=== PATIENT | female | born 1945 | race Caucasian/White ===

== ENCOUNTER 2021-11-28 15:05 | Outpatient (REF) | payer MEDICARE, SELFPAY ==
--- NOTE | ~2021-11-28 | MM_ITS ---
EXAMINATION: MM SCREENING DIGITAL BREAST TOMOSYNTHESIS, BILATERAL CLINICAL INFORMATION: Screening. Asymptomatic. The lifetime risk of breast cancer based on the Tyrer-Cuzick Model is 2%. COMPARISON: Mammography: 11/20/2018, 07/27/2014 TECHNIQUE: Digital breast tomosynthesis is performed in both the craniocaudal and mediolateral oblique views along with computer-aided detection (CAD). Synthesized 2D images are generated from the tomosynthesis. FINDINGS: The breasts are almost entirely fatty (ACR BI-RADS breast composition Category a). Background stromal and fibroglandular densities are stable. There are no significant masses, abnormal calcifications, or other abnormalities. The axilla and skin contours are unremarkable. MM/MM tomosynthesis screening BI IMPRESSION: No mammographic evidence of malignancy. ASSESSMENT: BI-RADS 1: Negative RECOMMENDATION: Routine annual mammography screening. This patient's information was entered into a reminder system with a target due date for their next mammogram.
== END 2021-11-28 15:06 | disposition home or self-care (01) ==
LOC: HO.MAMMO 15:05
PROVIDERS: Visit Provider Internal Medicine
DX: Z12.31 Encounter for screening mammogram for malignant neoplasm of breast (principal)
CPT/HCPCS: 77063; 77067

== ENCOUNTER 2022-01-08 18:00 | Inpatient (IN) | payer MEDICARE, SELFPAY ==
--- NOTE | ~2022-01-08 | CT_ITS ---
EXAMINATION: CT ABDOMEN AND PELVIS WITHOUT CONTRAST CLINICAL INFORMATION: Left lower quadrant pain COMPARISON: 05/07/2016 CT abdomen and pelvis TECHNIQUE: Multidetector volumetric imaging was performed from the superior aspect of the liver through the pubic symphysis. Sagittal and coronal reformatted images were obtained on the technologist's workstation. This CT examination was performed using dose optimization techniques as appropriate, variously including the following: *Automated exposure control *Adjustment of mA and/or kV according to patient size (this includes techniques or standardized protocols for targeted exams where dose is matched to indication/reason for exam; i.e. extremities or head) *Use of iterative reconstruction technique DLP: 592 mGy-cm FINDINGS: LUNG BASES: The visualized lung bases are unremarkable. Densely calcified granuloma noted at the left lung base. LIVER, GALLBLADDER, AND BILIARY TREE: The liver is mildly enlarged but decrease in size when compared to the prior study going from 19 to 17 cm. Attenuation is still remains markedly decreased consistent with hepatic steatosis. No focal hepatic lesion or biliary ductal dilatation is present. The gallbladder is unremarkable with no evidence of radiopaque gallstones, gallbladder wall thickening, or obvious pericholecystic inflammatory changes. PANCREAS: Unremarkable. SPLEEN: Unremarkable. ADRENAL GLANDS: There is a water density 1.5 cm mass involving the medial limb of the left adrenal consistent with a benign adenoma. The right adrenal gland appears normal. KIDNEYS AND URETERS: The kidneys are normal in size, shape, and attenuation. No hydronephrosis, hydroureter, or calculi seen. No perinephric stranding. BLADDER: Unremarkable. GASTROINTESTINAL TRACT: Diverticular changes are present in the colon. In the rectosigmoid, there is one large diverticulum present with inflammatory changes around it in an area of thickened sigmoid with findings suggestive of acute uncomplicated diverticulitis. No extraluminal air or drainable abscess is seen. The small and large bowel are otherwise unremarkable. The appendix is is not seen with certainty but there is no evidence of appendicitis.. ABDOMINAL WALL: No significant hernia is appreciated. LYMPH NODES: Normal. VASCULAR: Calcific plaque is present without aneurysm. PELVIC VISCERA: Retroverted uterus is present. An abnormal adnexal mass or free intraperitoneal fluid is not seen. OSSEOUS STRUCTURES: Unremarkable. CT/CT abdomen pelvis wo con IMPRESSION: 1. Acute uncomplicated sigmoid diverticulitis 2. Incidentally noted enlarged fatty liver, benign adenoma left adrenal gland and other findings described above. Fleischner guidelines were followed.
[2022-01-08 18:13] VITALS: BP 168/75; PULSE 98; RESP 18; TEMP 37; O2SAT 98; BMI 31.1
[2022-01-08 18:27] LABS: Basophils Percent Auto 0.1 % (0-2); Eosinophils Percent Auto 0.1 % (0-4); Hematocrit 40.8 % (37.0-47.0); Hemoglobin 13.5 g/dl (12.0-16.0); Imm Gran Abs Auto 0.09 X10*3/uL (0.00-0.03); Imm Gran Pct Auto 0.4 % (0.0-0.4); Lymphocytes Absolute Auto 1.8 X10*3/uL (1.2-4.9); Lymphocytes Percent Auto 8.9 % (20-40); MANUAL DIFF FLAG NO; Mean Corpuscular HGB Conc 33.1 g/dl (31.0-35.0); Mean Corpuscular Volume 87.6 fL (80.0-98.0); Mean Platelet Volume 9.2 fL (9.4-12.3); Monocytes Absolute Auto 1.2 X10*3/uL (0.1-1.2); Monocytes Percent Auto 6.1 % (2-11); Neutrophils Absolute Auto 17.2 x10*3/uL (2.0-8.3); Neutrophils Percent Auto 84.4 % (45-73); Platelet Count 305 X10*3/uL (160-400); Red Blood Count 4.66 X10*6/uL (4.20-5.50); Red Cell Distribution Width 11.9 % (11.0-16.0); White Blood Count 20.3 X10*3/uL (4.8-10.8)
[2022-01-08 18:46] LABS: Anion Gap 16 (12-20); Blood Urea Nitrogen 12 mg/dL (9-16); Calcium 9.5 mg/dL (8.4-10.2); Carbon Dioxide 23 mmol/L (22-29); Chloride 103 mmol/L (96-108); Creatinine Clr Calc Pharmacy 52.7; Estimated Glomerular Filt Rate > 60; Glucose Random 123 mg/dL (60-115); Potassium 4.5 mmol/L (3.3-5.1); Sodium 137 mmol/L (135-145)
--- NOTE | 2022-01-08 23:29 | ED.ABDPAIN ---
HPI - Abdominal Pain General Chief Complaint: Abdominal Pain Stated Complaint: Low Abdominal Pain Time Seen by Provider: 01/08/22 23:26 Source: patient Mode of arrival: ambulatory Limitations: no limitations History of Present Illness MD elicited complaint: abdominal pain Pertinent past history: none Onset (ago): day(s) (3) Pain Consistency: constant Location: LLQ and suprapubic Severity: severe Quality: aching Radiation: none Exacerbating factors: movement Relieving factors: nothing Associated symptoms: nausea, diarrhea, fever, chills and hematochezia (very mild mucousy bloody stools at times - a couple of times) Related Data Allergies Allergy/AdvReac Type Severity Reaction Status Date / Time Penicillins [PENICILLINS] Allergy Unknown ITCHING Unverified 05/05/20 15:50 Review of Systems Review of Systems Constitutional : No Weight loss, pos Fever, pos Chills ENT/Mouth : No sore throat, No Rhinorrhea Eyes: No Swelling, No Redness Cardiovascular : No Chest Pain, No SOB, NoEdema Respiratory : No Cough, No Sputum, No Wheezing Gastrointestinal : Positive Nausea, no Vomiting, positive Diarrhea, positive abdominal Pain, No Hematochezia, No Melena, pos mucousy stools with slight bloody tinge Genitourinary : No Dysuria, No Urinary Frequency, No Hematuria, No Urgency Musculoskeletal : No joint pain, No Myalgias, No Joint Swelling Skin : No Skin Lesions, No rash Neuro : No Weakness, No Numbness, No Dizziness, No Headache Psych : No Anxiety/Panic, No Depression Heme/Lymph: No Bruising, No Lymphadenopathy Endocrine : No Polyuria, No Polydipsia All other systems reviewed and are negative. [facility] Past Medical History Attestation statement: The following information was validated with the patient. Medical History No pertinent past medical history Social History Social History (Updated 01/08/22 @ 23:41 by Rosa Isela Wylie DO) Patient Tobacco Use Status: Never used Tobacco Advance Directives: No Physical Exam ED Vital Signs: Vital Signs - 24 hr 01/08/22 18:13 Temperature 98.6 F Pulse Rate 98 Respiratory Rate 18 Blood Pressure 168/75 H Pulse Oximetry 98 BMI result Body Mass Index 31.1 Appearance: Alert. Oriented X3. Anxious in pain mild acute distress. Eyes: Pupils equal, round and reactive to light. ENT: Pharynx normal. Neck: Normal inspection. Neck supple. CVS: Normal heart rate and rhythm. Pulses normal. Respiratory: No respiratory distress. Breath sounds normal. Abdomen: Soft and moderate lower abdominal ttp with mild rebound and vol guarding Skin: Skin warm and dry. Normal skin color. Normal skin turgor. Extremities: No lower extremity edema. Neuro: Oriented X 3. No motor deficit. No sensory deficit. Course Course Course Narrative: repeat pain medications ordered MDM - Abdominal Pain MDM Narrative Medical decision making narrative: 76 yo female with no sig PMH denies prior surgery comes in with c/o lower abdominal pain x 3 days with nausea, mucousy bloody stool at times (minor) feverish/chills no known diverticulitis - at this time she is very uncomfortable will obtain labs, cultures, CT scan for diverticulitis, IVF, IV morphine for pain, empiric levofloxacin for presumed intra abdominal infection suspected at 1130pm Lab Data Result diagrams: 01/08/22 18:22 01/08/22 18:22 Labs: Lab Results 01/08/22 01/08/22 01/09/22 Range/Units 18:22 18:22 00:03 WBC 20.3 H (4.8-10.8) X10*3/uL RBC 4.66 (4.20-5.50) X10*6/uL Hgb 13.5 (12.0-16.0) g/dl Hct 40.8 (37.0-47.0) % MCV 87.6 (80.0-98.0) fL MCH 29.0 (27.0-33.0) pg MCHC 33.1 (31.0-35.0) g/dl RDW 11.9 (11.0-16.0) % Plt Count 305 (160-400) X10*3/uL MPV 9.2 L (9.4-12.3) fL Immature Gran % (Auto) 0.4 (0.0-0.4) % Neut % (Auto) 84.4 H (45-73) % Lymph % (Auto) 8.9 L (20-40) % [place] % (Auto) 6.1 (2-11) % Eos % (Auto) 0.1 (0-4) % Baso % (Auto) 0.1 (0-2) % Lymph # (Auto) 1.8 (1.2-4.9) X10*3/uL [place] # (Auto) 1.2 (0.1-1.2) X10*3/uL Eos # (Auto) 0.0 (0.0-0.4) X10*3/uL Baso # (Auto) 0.0 (0.0-0.2) X10*3/uL Abs Immat Gran (auto) 0.09 H (0.00-0.03) X10*3/uL Absolute Neuts (auto) 17.2 H (2.0-8.3) x10*3/uL Absolute Nucleated RBC 0.000 (0.0-0.012) X10*3/uL Nucleated RBC % (auto) 0.0 (0.0-0.2) /100WBC PT 14.0 H (9.9-13.0) SEC INR 1.2 H (0.9-1.1) Sodium 137 (135-145) mmol/L Potassium 4.5 (3.3-5.1) mmol/L Chloride 103 (96-108) mmol/L Carbon Dioxide 23 (22-29) mmol/L Anion Gap 16 (12-20) BUN 12 (9-16) mg/dL Creatinine 0.84 (0.5-1.4) mg/dL Estim Creat Clear Calc 52.7 Estimated GFR > 60 Random Glucose 123 H (60-115) mg/dL Lactic Acid (0.5-2.0) mmol/L Calcium 9.5 (8.4-10.2) mg/dL Magnesium 2.1 (1.6-2.6) mg/dL Total Bilirubin 0.6 (0.0-1.0) mg/dL Direct Bilirubin 0.2 (0.0-0.5) mg/dL AST 28 (5-31) U/L ALT 29 (0-31) U/L Alkaline Phosphatase 101 (39-117) U/L Total Protein 8.1 H (6.5-8.0) g/dL Albumin 4.3 (3.5-5.0) g/dL Lipase 5 L (8-78) U/L COVID-19 (RACHAEL) (Negative) COVID-19 Clin Com 01/09/22 01/09/22 Range/Units 00:03 00:03 WBC (4.8-10.8) X10*3/uL RBC (4.20-5.50) X10*6/uL Hgb (12.0-16.0) g/dl Hct (37.0-47.0) % MCV (80.0-98.0) fL MCH (27.0-33.0) pg MCHC (31.0-35.0) g/dl RDW (11.0-16.0) % Plt Count (160-400) X10*3/uL MPV (9.4-12.3) fL Immature Gran % (Auto) (0.0-0.4) % Neut % (Auto) (45-73) % Lymph % (Auto) (20-40) % [place] % (Auto) (2-11) % Eos % (Auto) (0-4) % Baso % (Auto) (0-2) % Lymph # (Auto) (1.2-4.9) X10*3/uL [place] # (Auto) (0.1-1.2) X10*3/uL Eos # (Auto) (0.0-0.4) X10*3/uL Baso # (Auto) (0.0-0.2) X10*3/uL Abs Immat Gran (auto) (0.00-0.03) X10*3/uL Absolute Neuts (auto) (2.0-8.3) x10*3/uL Absolute Nucleated RBC (0.0-0.012) X10*3/uL Nucleated RBC % (auto) (0.0-0.2) /100WBC PT (9.9-13.0) SEC INR (0.9-1.1) Sodium (135-145) mmol/L Potassium (3.3-5.1) mmol/L Chloride (96-108) mmol/L Carbon Dioxide (22-29) mmol/L Anion Gap (12-20) BUN (9-16) mg/dL Creatinine (0.5-1.4) mg/dL Estim Creat Clear Calc Estimated GFR Random Glucose (60-115) mg/dL Lactic Acid 1.2 (0.5-2.0) mmol/L Calcium (8.4-10.2) mg/dL Magnesium (1.6-2.6) mg/dL Total Bilirubin (0.0-1.0) mg/dL Direct Bilirubin (0.0-0.5) mg/dL AST (5-31) U/L ALT (0-31) U/L Alkaline Phosphatase (39-117) U/L Total Protein (6.5-8.0) g/dL Albumin (3.5-5.0) g/dL Lipase (8-78) U/L COVID-19 (RACHAEL) Negative (Negative) COVID-19 Clin Com See Note Discharge Plan Discharge Clinical Impression: Diverticulitis Abdominal pain Qualifiers: Abdominal location: lower abdomen, unspecified Qualified Code(s): R10.30 - Lower abdominal pain, unspecified Leukocytosis Qualifiers: Leukocytosis type: unspecified Qualified Code(s): D72.829 - Elevated white blood cell count, unspecified Patient Disposition: Admitted As Inpatient
[2022-01-08 23:51] LABS: Alanine Aminotransferase 29 U/L (0-31); Albumin Level 4.3 g/dL (3.5-5.0); Alkaline Phosphatase 101 U/L (39-117); Aspartate Amino Transferase 28 U/L (5-31); Bilirubin Direct 0.2 mg/dL (0.0-0.5); Bilirubin Total 0.6 mg/dL (0.0-1.0); Lipase 5 U/L (8-78); Magnesium 2.1 mg/dL (1.6-2.6); Total Protein 8.1 g/dL (6.5-8.0)
[2022-01-09] VITALS (10 sets, daily range): BP systolic 129–209; BP diastolic 61–88; PULSE 81–92; RESP 14–19; TEMP 36.8–37.1; O2SAT 96–100; BMI 40.1
[2022-01-09] MEDS: ondansetron HCL 4 MG/2 ML VIAL IVPUSH (00:23)
[2022-01-09] MEDS: Morphine Sulfate 4 MG/ML CARTRIDGE IVPUSH (00:23)
[2022-01-09] MEDS: levoFLOXacin/D5W 500 MG/100 ML PIGGYBACK 100 MG IV (00:24)
[2022-01-09 00:47] LABS: Lactic Acid 1.2 mmol/L (0.5-2.0)
[2022-01-09] MEDS: Lactated Ringers 1,000 ML 999 ML IV (00:58)
[2022-01-09 01:15] LABS: COVID-19 Test Negative (Negative)
[2022-01-09 01:37] LABS: INTERNATIONAL NORM RATIO 1.2 (0.9-1.1)
--- NOTE | 2022-01-09 01:54 | PM.IMHP ---
History of Present Illness Date of Service: 01/09/22 Chief Complaint: abdominal pain 76-year-old female with no significant past medical history presented to the hospital with a chief complaint of abdominal pain. Patient reports that over the past 3-4 days she has been having abdominal pain, located in the lower quadrants; associated nausea and vomiting. Also has loose stools. Denies any blood in the stools. Has the symptoms were not improving decided to come to the ER for further evaluation. Denies any concerns for food poisoning. Denies any fever chills cough. Denies any urinary symptoms. Review of all other systems is negative except mentioned above ER course: Per ER team patient noted to have abdominal tenderness; CT scan showed uncomplicated sigmoid diverticulitis. Patient was given Levaquin and Flagyl. Admitted to the hospital for further management. [facility] Medical History No pertinent past medical history Pertinent family history: mother has hypertension Social History (Updated 01/08/22 @ 23:41 by Rosa Isela Wylie DO) Patient Tobacco Use Status: Never used Tobacco Advance Directives: No Meds Allergies Allergy/AdvReac Type Severity Reaction Status Date / Time Penicillins [PENICILLINS] Allergy Unknown ITCHING Unverified 05/05/20 15:50 Active Medications: Current Medications Metronidazole (Flagyl) 500 mg in 100 mls @ 100 mls/hr IV ONCE ONE Stop: 01/09/22 01:55 Levofloxacin (Levaquin) 750 mg in 150 mls @ 100 mls/hr IV Q24H ELKIN Metronidazole (Flagyl) 500 mg in 100 mls @ 100 mls/hr IV Q8H [facility] Physical Exam Vital Signs and Narrative: Vital Signs: Last Vital Signs Temp 98.6 F 01/08/22 18:13 Pulse 98 01/08/22 18:13 Resp 18 01/08/22 18:13 BP 168/75 H 01/08/22 18:13 Pulse Ox 98 01/08/22 18:13 BMI result Body Mass Index 31.1 Gen: Appears be in no acute distress HEENT: NCAT, Moist mucosa. Pulmonary: Vesicular breath sounds, fair air entry CVS: Normal S1-S2 Abdomen: BS+, Soft, Mildly tender in the bilateral lower quadrants; no guarding no rigidity. Extremities: Warm well perfused Neuro: Alert and awake. Results Labs CBC and Chem 7: 01/08/22 18:22 01/08/22 18:22 Labs: Laboratory Results - last 24 hr 01/08/22 01/08/22 01/09/22 18: 18: 00:03 MCV 87.6 MCH 29.0 MCHC 33.1 RDW 11.9 Plt Count 305 MPV 9.2 L Immature Gran % (Auto) 0.4 Neut % (Auto) 84.4 H Lymph % (Auto) 8.9 L [place] % (Auto) 6.1 Eos % (Auto) 0.1 Baso % (Auto) 0.1 Lymph # (Auto) 1.8 [place] # (Auto) 1.2 Eos # (Auto) 0.0 Baso # (Auto) 0.0 Abs Immat Gran (auto) 0.09 H Absolute Neuts (auto) 17.2 H Absolute Nucleated RBC 0.000 Nucleated RBC % (auto) 0.0 PT 14.0 H INR 1.2 H Anion Gap 16 Estim Creat Clear Calc 52.7 Estimated GFR > 60 Random Glucose 123 H Lactic Acid Calcium 9.5 Magnesium 2.1 Total Bilirubin 0.6 Direct Bilirubin 0.2 AST 28 ALT 29 Alkaline Phosphatase 101 Total Protein 8.1 H Albumin 4.3 Lipase 5 L COVID-19 (RACHAEL) COVID-19 Clin Com 01/09/22 01/09/22 00:03 00:03 MCV MCH MCHC RDW Plt Count MPV Immature Gran % (Auto) Neut % (Auto) Lymph % (Auto) [place] % (Auto) Eos % (Auto) Baso % (Auto) Lymph # (Auto) [place] # (Auto) Eos # (Auto) Baso # (Auto) Abs Immat Gran (auto) Absolute Neuts (auto) Absolute Nucleated RBC Nucleated RBC % (auto) PT INR Anion Gap Estim Creat Clear Calc Estimated GFR Random Glucose Lactic Acid 1.2 Calcium Magnesium Total Bilirubin Direct Bilirubin AST ALT Alkaline Phosphatase Total Protein Albumin Lipase COVID-19 (RACHAEL) Negative COVID-19 Clin Com See Note Imaging Radiologist's Impressions: Impressions Abdomen/Pelvis CT 01/09/22 00:35 IMPRESSION: 1. Acute uncomplicated sigmoid diverticulitis 2. Incidentally noted enlarged fatty liver, benign adenoma left adrenal gland and other findings described above. Fleischner guidelines were followed. Assessment and Plan (1) Diverticulitis: Status: Acute Plan 76-year-old female with no significant past medical history presented to the hospital with a chief complaint of abdominal pain. Noted to have acute uncomplicated sigmoid diverticulitis. Admitted for further management. Acute uncomplicated sigmoid diverticulitis: Continue Levaquin and Flagyl NPO IV fluids Pain control GI follow-up eventually DVT prophylaxis: Subcu heparin Code status: Full code Quality Stroke Does the patient have a stroke diagnosis?: No VTE Prior VTE?: No VTE Risk Level:: Medical - moderate - high VTE Device Contraindication: Treatment Not Indicated VTE Drug Contraindication: N/A - Med Ordered
[2022-01-09] MEDS: HYDROmorphone HCl 0.5 MG/0.5 ML SYRINGE IVPUSH (02:12)
[2022-01-09] MEDS: metroNIDAZOLE/NS 500 MG/100 ML PIGGYBACK 100 MG IV ×3 (02:28→18:35)
[2022-01-09] MEDS: Heparin Sodium,Porcine 5,000 UNIT/ML VIAL 5000 UNIT SUBCUT ×3 (02:32→18:34)
[2022-01-09] MEDS: Dextrose 5 % and 0.45 % NaCl 1,000 ML 50 ML IVCONT ×2 (03:36→22:12)
[2022-01-09] MEDS: HYDROmorphone HCl 1 MG/ML SYRINGE 0.5 MG IVPUSH ×2 (04:21→09:17)
[2022-01-09 06:56] LABS: MANUAL DIFF FLAG NO
[2022-01-09 07:00] LABS: Basophils Percent Auto 0.2 % (0-2); Eosinophils Percent Auto 0.2 % (0-4); Hematocrit 34.4 % (37.0-47.0); Hemoglobin 11.2 g/dl (12.0-16.0); Imm Gran Abs Auto 0.07 X10*3/uL (0.00-0.03); Imm Gran Pct Auto 0.4 % (0.0-0.4); Lymphocytes Absolute Auto 1.5 X10*3/uL (1.2-4.9); Lymphocytes Percent Auto 8.3 % (20-40); Mean Corpuscular HGB Conc 32.6 g/dl (31.0-35.0); Mean Corpuscular Hemoglobin 28.9 pg (27.0-33.0); Mean Corpuscular Volume 88.7 fL (80.0-98.0); Mean Platelet Volume 9.2 fL (9.4-12.3); Monocytes Absolute Auto 1.5 X10*3/uL (0.1-1.2); Monocytes Percent Auto 8.4 % (2-11); Neutrophils Absolute Auto 14.8 x10*3/uL (2.0-8.3); Neutrophils Percent Auto 82.5 % (45-73); Platelet Count 255 X10*3/uL (160-400); Red Blood Count 3.88 X10*6/uL (4.20-5.50); White Blood Count 17.9 X10*3/uL (4.8-10.8)
[2022-01-09 07:16] LABS: Anion Gap 13 (12-20); Blood Urea Nitrogen 13 mg/dL (9-16); Carbon Dioxide 25 mmol/L (22-29); Chloride 104 mmol/L (96-108); Creatinine Clr Calc Pharmacy 54.7; Estimated Glomerular Filt Rate > 60; Glucose Random 159 mg/dL (60-115); Potassium 4.8 mmol/L (3.3-5.1); Sodium 137 mmol/L (135-145)
[2022-01-09] MEDS: Acetaminophen 325 MG TABLET 650 MG PO (07:57)
--- NOTE | 2022-01-09 08:24 | PHA.MEDREC ---
Pharmacy Consult ? Medication Reconciliation Pharmacy has completed the medication reconciliation. Pt takes no home medications.
[2022-01-09] MEDS: 0.9 % Sodium Chloride Flush 3 ML SYRINGE IVFLUSH (09:19)
--- NOTE | 2022-01-09 10:06 | MHC.CM.PN ---
Met with patient in regards to discharge planning. Patient lives with her daughter, ambulate independently and had no services prior to coming to the hospital. No services anticipated to be needed because patient is not homebound. PCP verified. Patient has a HCP and will attempt to obtain a copy. Patient received 2 Pfizer vaccines. She was scheduled for a booster this week, but has not received it yet. IMM explained and signed. Patients son or daughter will transport her home when medically stable. Continue to monitor for d/c needs.
--- NOTE | 2022-01-09 10:52 | PM.EVENT ---
Event Note Date of Service: 01/09/22 Event Note: Patient seen and examined. Admitted this morning with acute divertiuliti, still with signficant pain. Continue IV Abx, pain management o/w A/P per H and p from this morning
--- NOTE | 2022-01-09 20:12 | PM.EVENT ---
Event Note Date of Service: 01/09/22 Event Note: hypertensive urgency: Patient asymptomatic. Started on amlodipine.
[2022-01-10] MEDS: Heparin Sodium,Porcine 5,000 UNIT/ML VIAL 5000 UNIT SUBCUT ×2 (01:23→10:35)
[2022-01-10] MEDS: levoFLOXacin/D5W 750 MG/150 ML PIGGYBACK 100 MG IV (01:27)
[2022-01-10] MEDS: metroNIDAZOLE/NS 500 MG/100 ML PIGGYBACK 100 MG IV ×3 (02:54→17:31)
[2022-01-10 07:43] VITALS: BP 161/74; PULSE 79; RESP 20; TEMP 36.6; O2SAT 96
[2022-01-10] MEDS: amLODIPine Besylate 5 MG TABLET PO (08:45)
--- NOTE | 2022-01-10 14:16 | P.PNIM_ITS ---
Subjective Subjective Date of Service: 01/10/22 Interval History: cc: abd pain interval history: a bit better, but not much appetite Cardiovascular Cardiovascular: Reports no additional cardiovascular complaints Respiratory Respiratory: Reports no additional respiratory complaints Physical Exam Vital Signs: Vital Signs: Last Vital Signs Temp 97.8 F 01/10/22 07:43 Pulse 79 01/10/22 07:43 Resp 20 01/10/22 07:43 BP 161/74 H 01/10/22 07:43 Pulse Ox 96 01/10/22 07:43 BMI result Body Mass Index 40.1 General: AO X 3, no acute distress Resp: CTA bilateral, no accessory muscles used CVS: S1,S2,RRR GI: soft, abd tender, non distended Neuro: motor grossly intact, alert Psych: appropriate affect, appropriate insight Objective Data Active Medications Acetaminophen (Acetaminophen 325 Mg Tablet) 650 mg PO Q6H PRN PRN Reason: Pain, Mild (Pain Scale 1-3) Last Admin: 01/09/22 07:57 Dose: 650 mg Documented by: SANTHOSH Amlodipine Besylate (Amlodipine Besylate 5 Mg Tablet) 5 mg PO DAILY [facility]; Protocol Last Admin: 01/10/22 08:45 Dose: 5 mg Documented by: DUARTE Heparin Sodium (Porcine) (Heparin Sodium,Porcine 5,000 Unit/Ml Vial) 5,000 unit SUBCUT Q8H ELKIN Last Admin: 01/10/22 10:35 Dose: 5,000 unit Documented by: DUARTE Hydromorphone HCl (Hydromorphone Hcl 1 Mg/Ml Syringe) 0.5 mg IVPUSH Q4H PRN; Protocol PRN Reason: Pain, Severe (Pain Scale 7-10) Last Admin: 01/09/22 09:17 Dose: 0.5 mg Documented by: SANTHOSH Levofloxacin (Levaquin) 750 mg in 150 mls @ 100 mls/hr IV Q24H [facility] Last Infusion: 01/10/22 02:59 Dose: 0 mls/hr Documented by: EVANS Metronidazole (Flagyl) 500 mg in 100 mls @ 100 mls/hr IV Q8H [facility] Last Infusion: 01/10/22 11:42 Dose: 0 mls/hr Documented by: DUARTE Dextrose/Sodium Chloride (D51/2ns) 1,000 mls @ 50 mls/hr IVCONT .Q20H [facility] Last Infusion: 01/10/22 11:42 Dose: 50 mls/hr Documented by: DUARTE Melatonin (Melatonin 3 Mg Tablet) 6 mg PO BEDTIME PRN PRN Reason: Insomnia Senna (Sennosides 8.6 Mg Tablet) 17.2 mg PO BEDTIME PRN PRN Reason: Constipation Sodium Chloride (0.9 % Sodium Chloride Flush 3 Ml Syringe) 3 ml IVFLUSH QSHIFT [facility] Last Admin: 01/10/22 08:45 Dose: Not Given Documented by: DUARTE Non-Admin Reason: IV Running Labs CBC & Chem 7: 01/09/22 06:52 01/09/22 06:52 Microbiology Microbiology Results: Microbiology 01/09/22 00:49 Blood Culture - Preliminary Blood - Venous No growth after 24 hours. 01/09/22 00:50 Blood Culture - Preliminary Blood - Venous No growth after 24 hours. Assessment and Plan (1) Abdominal pain: Status: Acute Plan 76F presented with abdominal pain acute sigmoid colitis erika ngo, advance to clears fatty liver suspect WONG will check lipids, a1c rule out viral morbid obesity weight loss recommended dvt prophylaxis change to lovenox full code reason for continued hospitalization: continued pain, awaiting po tolerance Quality Stroke Does the patient have a stroke diagnosis?: No VTE Prior VTE?: No VTE Risk Level:: Medical - moderate - high VTE Device Contraindication: Treatment Not Indicated VTE Drug Contraindication: N/A - Med Ordered
--- NOTE | 2022-01-10 14:41 | MHC.CM.PN ---
per samantha lam pt will be ready for dc in 2 days plan remains home no servceis
[2022-01-10 15:11] VITALS: BP 141/74; PULSE 76; RESP 17; TEMP 36; O2SAT 95
[2022-01-10 19:17] VITALS: BP 164/78; PULSE 79; RESP 17; TEMP 36.3; O2SAT 96
[2022-01-10 23:19] VITALS: BP 145/72; PULSE 79; RESP 18; TEMP 37; O2SAT 98
[2022-01-10] MEDS: Dextrose 5 % and 0.45 % NaCl 1,000 ML 50 ML IVCONT (23:25)
[2022-01-11 03:03] VITALS: BP 152/72; PULSE 75; RESP 20; TEMP 37; O2SAT 97
[2022-01-11] MEDS: metroNIDAZOLE/NS 500 MG/100 ML PIGGYBACK 100 MG IV ×2 (03:03→09:49)
[2022-01-11] MEDS: levoFLOXacin/D5W 750 MG/150 ML PIGGYBACK 100 MG IV (03:03)
[2022-01-11 06:17] LABS: Hematocrit 34.9 % (37.0-47.0); Hemoglobin 11.6 g/dl (12.0-16.0); Mean Corpuscular HGB Conc 33.2 g/dl (31.0-35.0); Mean Corpuscular Hemoglobin 29.4 pg (27.0-33.0); Mean Corpuscular Volume 88.6 fL (80.0-98.0); Mean Platelet Volume 9.6 fL (9.4-12.3); Platelet Count 282 X10*3/uL (160-400); Red Blood Count 3.94 X10*6/uL (4.20-5.50); Red Cell Distribution Width 11.8 % (11.0-16.0); White Blood Count 10.2 X10*3/uL (4.8-10.8)
[2022-01-11 06:34] LABS: Anion Gap 14 (12-20); Blood Urea Nitrogen 8 mg/dL (9-16); Calcium 9.5 mg/dL (8.4-10.2); Carbon Dioxide 27 mmol/L (22-29); Chloride 104 mmol/L (96-108); Cholesterol 216 mg/dL; Creatinine Clr Calc Pharmacy 66.8; Estimated Glomerular Filt Rate > 60; Glucose Fasting 128 mg/dL (60-99); HDL Cholesterol 59 mg/dL; LDL Cholesterol Calculated 143 mg/dl; Potassium 3.5 mmol/L (3.3-5.1); Sodium 141 mmol/L (135-145); Triglycerides 73 mg/dL
[2022-01-11 06:40] LABS: Estimated Average Glucose 114 mg/dL; Hemoglobin A1c % 5.6 %
[2022-01-11 06:49] LABS: HBS Num1 1.23 mIU/mL (0-7.99); HBc Num1 0.04 S/CO (0.00-0.79); HBsAGNum1 0.21 S/CO (0.00-0.99); Hepatitis B Core Antibody Nonreactive (Nonreactive); Hepatitis B Surface Antigen Negative (Negative); ~HepC Num1 0.07 S/CO (0.00-0.79); ~Hepatitis B Surface Antibody NONREACTIVE (Nonreactive); ~Hepatitis C Antibody Nonreactive (Nonreactive)
[2022-01-11 07:07] VITALS: BP 176/80; PULSE 80; RESP 18; TEMP 36.8; O2SAT 96
[2022-01-11] MEDS: amLODIPine Besylate 5 MG TABLET PO (09:49)
[2022-01-11] MEDS: 0.9 % Sodium Chloride Flush 3 ML SYRINGE IVFLUSH (09:50)
[2022-01-11 11:24] VITALS: BP 168/89; PULSE 84; RESP 18; TEMP 36.6; O2SAT 96
--- NOTE | 2022-01-11 13:43 | PM.DS ---
DS: Providers Provider Date of Service: 01/11/22 Date of admission: 01/09/22 01:53 Primary care physician: Frandy Raymond MD DS: Diagnosis Discharge Diagnosis (1) Abdominal pain: Status: Acute DS: Summary Hospital Course Hospital Course: from initial hpi: Chief Complaint:? abdominal pain ?76-year-old female with no significant past medical history presented to the hospital with a chief complaint of abdominal pain.? Patient reports that over the past 3-4 days she has been having abdominal pain, located in the lower quadrants; associated nausea and vomiting.? Also has loose stools.? Denies any blood in the stools.? Has the symptoms were not improving decided to come to the ER for further evaluation.? Denies any concerns for food poisoning.? Denies any fever chills cough.? Denies any urinary symptoms.? Review of all other systems is negative except mentioned above ER course: Per ER team patient noted to have abdominal tenderness; CT scan showed uncomplicated sigmoid diverticulitis.? Patient was given Levaquin and Flagyl.? Admitted to the hospital for further management. hospital course: Patient was admitted for acute sigmoid diverticulitis. She was treated with Levaquin and Flagyl. Her symptoms significantly improved, her diet was advanced to the point where she was tolerating solid diet with minimal pain. She will be discharged on 7 more days of Levaquin and Flagyl and should follow-up with Gastroenterology. She was also noted to have fatty liver, is likely WONG, A1c was checked which was 5.6, LDL was 143, viral hepatitis was negative. For her morbid obesity weight loss is recommended. Patient was also noted to have elevated blood pressures likely undiagnosed hypertension. She was started on amlodipine 5 mg daily. Time Spent with Patient Time attestation: Total time spent providing and/or coordinating discharge services: Discharge coordination time: Greater than 30 minutes Quality: Safe Use of Opioids Does Pt have an Active Cancer Diagnosis on the Problem List?: No Quality: Stroke Does the patient have a stroke diagnosis?: No Physical Exam Vital Signs: Vital Signs: Last Vital Signs Temp 97.8 F 01/11/22 11:24 Pulse 84 01/11/22 11:24 Resp 18 01/11/22 11:24 BP 168/89 H 01/11/22 11:24 Pulse Ox 96 01/11/22 11:24 BMI result Body Mass Index 40.1 General: AO X 3, no acute distress Resp: CTA bilateral, no accessory muscles used CVS: S1,S2,RRR GI: soft, minimally tender, non distended Neuro: motor grossly intact, alert Psych: appropriate affect, appropriate insight DS: Data Data Completed and Pending Labs on day of discharge: Laboratory Results - last 24 hr 01/11/22 01/11/22 01/11/22 05:34 05:34 05:34 WBC RBC Hgb Hct MCV MCH MCHC RDW Plt Count MPV Absolute Nucleated RBC Nucleated RBC % (auto) Sodium 141 Potassium 3.5 D Chloride 104 Carbon Dioxide 27 Anion Gap 14 BUN 8 L Creatinine 0.76 Estim Creat Clear Calc 66.8 Estimated GFR > 60 Fasting Glucose 128 H Estimat Average Glucose 114 Hemoglobin A1c % 5.6 Calcium 9.5 Triglycerides 73 Cholesterol 216 LDL Cholesterol, Calc 143 HDL Cholesterol 59 Hep Bs Antigen Negative Hep Bs Antibody NONREACTIVE Hep B Core Total Ab Nonreactive Hepatitis C Ab (EIA) Nonreactive 01/11/22 05:34 WBC 10.2 RBC 3.94 L Hgb 11.6 L Hct 34.9 L MCV 88.6 MCH 29.4 MCHC 33.2 RDW 11.8 Plt Count 282 MPV 9.6 Absolute Nucleated RBC 0.000 Nucleated RBC % (auto) 0.0 Sodium Potassium Chloride Carbon Dioxide Anion Gap BUN Creatinine Estim Creat Clear Calc Estimated GFR Fasting Glucose Estimat Average Glucose Hemoglobin A1c % Calcium Triglycerides Cholesterol LDL Cholesterol, Calc HDL Cholesterol Hep Bs Antigen Hep Bs Antibody Hep B Core Total Ab Hepatitis C Ab (EIA) Preliminary micro results at discharge 01/09/22 00:50 Blood Culture - Preliminary Blood - Venous No growth after 48 hours. 01/09/22 00:49 Blood Culture - Preliminary Blood - Venous No growth after 48 hours. Discharge Plan Discharge Patient Disposition: Home, Self-Care Discharge Diagnosis: acute diverticulitis, htn Referrals: Frandy Raymond MD [Primary Care Provider] - 1 Week Pete Coles MD [Physician] - 1 Month (diverticulitis) Discharge Medications: New amlodipine 5 mg Tablet 5 mg PO DAILY Qty: 30 0RF Protocol: Hold for SBP< HOLD for SBP < : 90 levofloxacin 750 mg tablet 750 mg PO DAILY Qty: 7 0RF metronidazole 500 mg tablet 500 mg PO BID Qty: 14 0RF Discharge Orders: Discharge Order (Routine); Ordered 01/11/22 Ordered By: Gerry Anglin Diet: advance to usual diet Activity on Discharge: As tolerated Stand Alone Forms: Patient Portal Discharge page Care Plan Goals: reocvery Health Concerns: diverticulitis, htn Plan of Treatment: 7 days levaquin, flagyl, start amlodipine, follow up with gi and pcp Assessment: see above
--- NOTE | 2022-01-11 14:23 | MHC.CM.PN ---
PT WILL DC HOME TODAY, NO SERVICES ORDERED
== END 2022-01-11 15:22 | disposition home or self-care (01) | DRG 392 ==
LOC: HO.ED 01-09 01:12 → HO.EDOVER 01-09 01:56 → HO.IMC 01-09 19:39
PROVIDERS: Admitting Provider Hospitalist; Emergency Provider Emergency Medicine; PCP Internal Medicine; Visit Provider Internal Medicine
DX: K57.32 Diverticulitis of large intestine without perforation or abscess without bleeding (principal); Z68.41 Body mass index [BMI] 40.0-44.9, adult; I16.0 Hypertensive urgency; K75.81 Nonalcoholic steatohepatitis (NASH); Z71.3 Dietary counseling and surveillance; E66.01 Morbid (severe) obesity due to excess calories; D72.829 Elevated white blood cell count, unspecified; Z20.822 Contact with and (suspected) exposure to COVID-19; Z88.0 Allergy status to penicillin; Z79.899 Other long term (current) drug therapy
CPT/HCPCS: 36415; 74176; 80048; 80061; 80076; 83036; 83605; 83690; 83735; 85025; 85027; 85610; 86704; 86706; 86803; 87040; 87340; 87635; 99285; J1170; J1956; J2270; J2405

== ENCOUNTER 2022-04-12 08:11 | Outpatient (REF) | payer MEDICARE, SELFPAY ==
--- NOTE | ~2022-04-12 | XR_ITS ---
EXAMINATION: XR CHEST 2 VIEWS CLINICAL INFORMATION: Weight loss; history of smoking. COMPARISON: Chest radiographs dated 11/04/2018. TECHNIQUE: Frontal and lateral views of the chest were obtained. FINDINGS: The heart, great vessels, pulmonary vasculature and mediastinum are normal. The lungs show no focal infiltrate, effusion or pneumothorax. There is no acute osseous abnormality. XR/XR chest 2V IMPRESSION: No active cardiopulmonary disease.
[2022-04-12 08:29] LABS: MANUAL DIFF FLAG NO
[2022-04-12 08:51] LABS: Basophils Absolute Auto 0.1 X10*3/uL (0.0-0.2); Basophils Percent Auto 0.6 % (0-2); Eosinophils Absolute Auto 0.3 X10*3/uL (0.0-0.4); Eosinophils Percent Auto 2.2 % (0-4); Hematocrit 43.2 % (37.0-47.0); Hemoglobin 14.2 g/dl (12.0-16.0); Imm Gran Abs Auto 0.03 X10*3/uL (0.00-0.03); Imm Gran Pct Auto 0.2 % (0.0-0.4); Lymphocytes Percent Auto 16.5 % (20-40); Mean Corpuscular HGB Conc 32.9 g/dl (31.0-35.0); Mean Corpuscular Hemoglobin 28.3 pg (27.0-33.0); Mean Corpuscular Volume 86.1 fL (80.0-98.0); Mean Platelet Volume 9.4 fL (9.4-12.3); Monocytes Absolute Auto 0.6 X10*3/uL (0.1-1.2); Neutrophils Absolute Auto 9.1 x10*3/uL (2.0-8.3); Neutrophils Percent Auto 75.5 % (45-73); Platelet Count 338 X10*3/uL (160-400); Red Blood Count 5.02 X10*6/uL (4.20-5.50); Red Cell Distribution Width 13.8 % (11.0-16.0); White Blood Count 12.1 X10*3/uL (4.8-10.8)
[2022-04-12 09:24] LABS: Alanine Aminotransferase 15 U/L (0-31); Albumin Level 4.5 g/dL (3.5-5.0); Alkaline Phosphatase 102 U/L (39-117); Anion Gap 18 (12-20); Aspartate Amino Transferase 23 U/L (5-31); Bilirubin Total 0.5 mg/dL (0.0-1.0); Blood Urea Nitrogen 17 mg/dL (9-16); Calcium 10.3 mg/dL (8.4-10.2); Carbon Dioxide 25 mmol/L (22-29); Chloride 101 mmol/L (96-108); Cholesterol 347 mg/dL; Estimated Glomerular Filt Rate 50; Glucose Fasting 118 mg/dL (60-99); HDL Cholesterol 63 mg/dL; LDL Cholesterol Calculated 205 mg/dl; Lipase 6 U/L (8-78); Potassium 3.7 mmol/L (3.3-5.1); Sodium 140 mmol/L (135-145); Total Protein 8.2 g/dL (6.5-8.0); Triglycerides 397 mg/dL
[2022-04-12 09:45] LABS: Free T4 (Free Thyroxine) 0.93 ng/dL (0.71-1.85); Thyroid Stimulating Hormone 1.05 uIU/mL (0.32-4.0)
[2022-04-12 10:02] LABS: Vitamin B12 390 pg/mL (200-900)
== END 2022-04-12 08:12 | disposition home or self-care (01) ==
LOC: HO.LAB 08:11
PROVIDERS: PCP Internal Medicine; Visit Provider Internal Medicine
DX: I10 Essential (primary) hypertension (principal); E78.00 Pure hypercholesterolemia, unspecified; K57.90 Diverticulosis of intestine, part unspecified, without perforation or abscess without bleeding
CPT/HCPCS: 36415; 71046; 80053; 80061; 82607; 83690; 84439; 84443; 85025

== ENCOUNTER 2022-05-21 10:57 | Outpatient (REF) | payer MEDICARE, SELFPAY ==
[2022-05-21 13:30] LABS: Vitamin B12 397 pg/mL (200-900)
== END 2022-05-21 10:58 | disposition home or self-care (01) ==
LOC: HO.LAB 10:57
PROVIDERS: PCP Internal Medicine; Visit Provider Psychiatry & Neurology Neurology
DX: F01.50 Vascular dementia, unspecified severity, without behavioral disturbance, psychotic disturbance, mood disturbance, and anxiety (principal); R25.1 Tremor, unspecified; K21.9 Gastro-esophageal reflux disease without esophagitis; E78.00 Pure hypercholesterolemia, unspecified
CPT/HCPCS: 36415; 82607

== ENCOUNTER 2022-06-19 15:46 | Outpatient (REF) | payer MEDICARE, SELFPAY ==
--- NOTE | ~2022-06-19 | MR_ITS ---
EXAMINATION: MR BRAIN WITHOUT CONTRAST CLINICAL INFORMATION: Dementia. Memory problems. COMPARISON: None. TECHNIQUE: Multiplanar, multisequence imaging of the brain was performed without contrast. FINDINGS: No diffusion abnormalities are identified to suggest an acute infarct. No evidence of hydrocephalus. No mass effect or midline shift is seen. Mild chronic white matter microangiopathic changes noted with small chronic lacunar infarcts in the basal ganglia bilaterally. Generalized parenchymal volume loss evident with concordant ex vacuo prominence of the ventricles. There is a small chronic infarct in the left middle frontal gyrus near the vertex. No extra-axial fluid collections are seen. The brainstem and cerebellum are normal. The gradient refocused acquisition demonstrates no pathologic magnetic susceptibility artifact to indicate underlying acute or chronic blood products. The craniovertebral junction, marrow signal, and midline structures are normal. The major intracranial flow voids at the level of the [place] of [place] are preserved. The dural venous sinus flow voids are maintained. The paranasal sinuses are fairly well aerated. There is a mild amount of fluid in the dependent left mastoid air cells. MR/MR head/brain wo con IMPRESSION: No acute intracranial process. Moderate generalized parenchymal volume loss with mild chronic white matter microangiopathy. Scattered small chronic lacunar infarcts in the basal ganglia and left frontal lobe.
== END 2022-06-19 15:47 | disposition home or self-care (01) ==
LOC: HO.MRI 15:46
PROVIDERS: Visit Provider Psychiatry & Neurology Neurology
DX: F01.50 Vascular dementia, unspecified severity, without behavioral disturbance, psychotic disturbance, mood disturbance, and anxiety (principal)
CPT/HCPCS: 70551

== ENCOUNTER 2022-07-04 10:54 | Outpatient (REF) | payer MEDICARE, SELFPAY ==
[2022-07-04 12:38] LABS: Alanine Aminotransferase 15 U/L (0-31); Albumin Level 4.5 g/dL (3.5-5.0); Alkaline Phosphatase 105 U/L (39-117); Anion Gap 16 (12-20); Aspartate Amino Transferase 20 U/L (5-31); Bilirubin Total 0.6 mg/dL (0.0-1.0); Blood Urea Nitrogen 17 mg/dL (9-16); Calcium 10.6 mg/dL (8.4-10.2); Carbon Dioxide 28 mmol/L (22-29); Chloride 102 mmol/L (96-108); Cholesterol 286 mg/dL; Estimated Glomerular Filt Rate 49; Glucose Fasting 104 mg/dL (60-99); HDL Cholesterol 69 mg/dL; LDL Cholesterol Calculated 181 mg/dl; Potassium 4.4 mmol/L (3.3-5.1); Sodium 142 mmol/L (135-145); Total Protein 7.9 g/dL (6.5-8.0); Triglycerides 183 mg/dL
== END 2022-07-04 10:55 | disposition home or self-care (01) ==
LOC: HO.LAB 10:54
PROVIDERS: PCP Internal Medicine; Visit Provider Internal Medicine
DX: E78.00 Pure hypercholesterolemia, unspecified (principal); N18.9 Chronic kidney disease, unspecified
CPT/HCPCS: 36415; 80053; 80061

== ENCOUNTER 2022-07-22 22:28 | Inpatient (IN) | payer MEDICARE, SELFPAY ==
--- NOTE | ~2022-07-22 | FL_ITS ---
EXAMINATION: XR FLUOROSCOPY WITH IMAGES CLINICAL INFORMATION: Hip fracture COMPARISON: Previous x-ray of the left hip from yesterday TECHNIQUE: Fluoroscopy Supervised By: Dr. Kyle Floyd. Fluoroscopy Time: 0.6 minutes. Cumulative Dose: 15 mGy. DAP: 0.3 Gycm2. Images: 2. FINDINGS: Fluoroscopy guidance was provided for ORIF of left femoral neck fracture. Images demonstrate 3 new orthopedic screws. There is anatomic alignment. FL/FL guidance in OR IMPRESSION: Fluoroscopy guidance for ORIF of left femoral neck fracture.
--- NOTE | ~2022-07-22 | XR_ITS ---
EXAMINATION: XR CHEST CLINICAL INFORMATION: Fall, chest pain COMPARISON: 04/12/2022 TECHNIQUE: Frontal view of the chest was obtained. FINDINGS: The lungs are clear with no focal consolidation. No evidence of pneumothorax, pulmonary edema, or pleural effusions. The cardiomediastinal silhouette is unremarkable. No acute osseous findings. XR/XR chest 1V IMPRESSION: No acute cardiopulmonary findings.
--- NOTE | ~2022-07-22 | XR_ITS ---
EXAMINATION: XR HIP, LEFT CLINICAL INFORMATION: Fall with left hip pain. Rule out fracture COMPARISON: Pelvis and hip radiographs 12/16/2009 TECHNIQUE: AP pelvis, 2 views of the left hip. FINDINGS: Minimally displaced subcapital left femoral neck fracture. No dislocation. No additional fractures identified. Bilateral hip joint spaces are maintained. Minimal acetabular rim osteophyte formation bilaterally. Pubic symphysis and SI joints are congruent and intact. Facet arthrosis in the lower lumbar spine noted. Sacrum is obscured by bowel gas and stool. XR/XR hip LT w PEL1V IMPRESSION: Minimally displaced subcapital left femoral neck fracture.
--- NOTE | ~2022-07-22 | CT_ITS ---
EXAMINATION: NONCONTRAST HEAD CT NONCONTRAST CERVICAL SPINE CT INDICATION INFORMATION: Fall, headache and neck pain COMPARISON: MRI 06/19/2022 TECHNIQUE: Separate noncontrast CT examinations of the head and cervical spine were performed. Coronal head CT images and coronal and sagittal cervical spine images were created at the technologist workstation. DLP: 964 mGy-cm DOSE LOWERING TECHNIQUES: This CT examination was performed using dose optimization techniques as appropriate, variously including the following: - Automated exposure control - Adjustment of mA and/or kV according to patient size (this includes techniques or standardized protocols for targeted exams were dose is matched to indication/reason for exam; i.e. extremities or head) - Use of iterative reconstruction technique FINDINGS: Head: There is no evidence of acute intracranial hemorrhage or territorial infarction. No abnormal mass-effect or midline shift is seen. Vickers to white matter differentiation is well preserved. No extra-axial fluid collections are identified. The ventricles are normal in size. There is mild periventricular white matter hypoattenuation consistent with chronic small vessel ischemic disease. Mild volume loss is noted. The osseous structures and soft tissues are normal. The mastoid air cells and visualized portions of the paranasal sinuses are well-aerated. Cervical spine: There is anatomic alignment of the vertebral bodies and posterior elements. Vertebral body heights are maintained. There is right-sided facet arthropathy at C3-C4. There is disc space narrowing and endplate osteophyte formation in the mid to lower cervical spine. No evidence of acute fracture. No prevertebral soft tissue swelling. Visualized portions of the lung apices are unremarkable. The thyroid gland is unremarkable. CT/CT cervical spine wo IV con IMPRESSION: HEAD: No acute intracranial findings. CERVICAL SPINE: No acute findings identified. Degenerative changes as noted above.
[2022-07-22 22:41] VITALS: BP 140/92; PULSE 77; O2SAT 98
[2022-07-22 22:48] VITALS: BP 214/93; PULSE 73; RESP 18; TEMP 36.8; O2SAT 98; BMI 30.2
--- NOTE | 2022-07-22 22:48 | ECG_ITS ---
Test Reason : FALL Blood Pressure : / mmHG Vent. Rate : 056 BPM Atrial Rate : 056 BPM P-R Int : 144 ms QRS Dur : 086 ms QT Int : 416 ms P-R-T Axes : 043 061 043 degrees QTc Int : 401 ms Sinus bradycardia Otherwise normal ECG When compared with ECG of 07-MAY-2016 19:41, No significant change was found Referred By: Sterling Sherman Electronically Signed By:CHERRI POE MD
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
[2022-07-22] MEDS: Morphine Sulfate 4 MG/ML CARTRIDGE IVPUSH (23:25)
[2022-07-22] MEDS: ondansetron HCL 4 MG/2 ML VIAL IVPUSH (23:25)
[2022-07-22] MEDS: 0.9 % Sodium Chloride 1,000 ML 999 ML IV (23:30)
[2022-07-22 23:53] LABS: MANUAL DIFF FLAG NO
[2022-07-23 00:05] LABS: Basophils Absolute Auto 0.1 X10*3/uL (0.0-0.2); Basophils Percent Auto 0.4 % (0-2); Eosinophils Absolute Auto 0.1 X10*3/uL (0.0-0.4); Eosinophils Percent Auto 0.8 % (0-4); Hematocrit 40.6 % (37.0-47.0); Hemoglobin 13.4 g/dl (12.0-16.0); Imm Gran Abs Auto 0.15 X10*3/uL (0.00-0.03); Imm Gran Pct Auto 0.9 % (0.0-0.4); Lymphocytes Absolute Auto 1.7 X10*3/uL (1.2-4.9); Lymphocytes Percent Auto 9.7 % (20-40); Mean Corpuscular Hemoglobin 30.1 pg (27.0-33.0); Mean Corpuscular Volume 91.2 fL (80.0-98.0); Mean Platelet Volume 9.6 fL (9.4-12.3); Monocytes Percent Auto 5.4 % (2-11); Neutrophils Absolute Auto 14.5 x10*3/uL (2.0-8.3); Neutrophils Percent Auto 82.8 % (45-73); Platelet Count 253 X10*3/uL (160-400); Red Blood Count 4.45 X10*6/uL (4.20-5.50); Red Cell Distribution Width 12.2 % (11.0-16.0); White Blood Count 17.5 X10*3/uL (4.8-10.8)
[2022-07-23 00:23] LABS: Alanine Aminotransferase 22 U/L (0-31); Albumin Level 4.4 g/dL (3.5-5.0); Alkaline Phosphatase 116 U/L (39-117); Anion Gap 23 (12-20); Aspartate Amino Transferase 29 U/L (5-31); Blood Urea Nitrogen 19 mg/dL (9-16); Calcium 9.3 mg/dL (8.4-10.2); Carbon Dioxide 20 mmol/L (22-29); Chloride 102 mmol/L (96-108); Creatinine Clr Calc Pharmacy 50.7; Estimated Glomerular Filt Rate > 60; Ethanol < 10 mg/dL; Glucose Random 134 mg/dL (60-115); Lipase 16 U/L (8-78); Potassium 3.9 mmol/L (3.3-5.1); Sodium 141 mmol/L (135-145); Total Protein 8.1 g/dL (6.5-8.0)
[2022-07-23 00:42] LABS: COVID-19 Test Negative (Negative)
[2022-07-23 01:15] LABS: Bilirubin Total 0.3 mg/dL (0.0-1.0)
[2022-07-23 01:33] LABS: INTERNATIONAL NORM RATIO 1.1 (0.9-1.1); Prothrombin Time 12.4 SEC (10.0-13.1)
[2022-07-23] MEDS: Morphine Sulfate 4 MG/ML CARTRIDGE IVPUSH ×6 (01:34→21:53)
[2022-07-23 01:36] LABS: Partial Thromboplastin Time 28.9 SEC (26.0-36.4)
[2022-07-23 02:05] VITALS: BP 141/63; PULSE 67; RESP 18; TEMP 36.9; O2SAT 95
[2022-07-23 02:35] LABS: IDNOW Serial# BCCEAD1C; Influenza A Negative (Negative); Influenza B2 Negative (Negative)
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
[2022-07-23 05:51] VITALS: BP 137/58; PULSE 76; RESP 17; TEMP 36.9; O2SAT 94
[2022-07-23] MEDS: ondansetron HCL 4 MG/2 ML VIAL IVPUSH (06:03)
[2022-07-23 06:05] LABS: Appearance Urine Clear; Color Urine Yellow; Glucose Urine UA Negative (Negative); Leukocyte Esterase Urine Negative (Negative); Nitrite Urine Negative (Negative); PH 6.5 (5.0-9.0); Urine Blood Negative (Negative); Urine Ketones Trace mg/dL (Negative); Urine Protein Trace mg/dL (Neg-Trace)
[2022-07-23 06:15] LABS: Amphetamine Screen Urine Not Detected (Not Detect); Barbiturates, Urine Not Detected (Not Detect); Benzodiazepines Screen Urine Not Detected (Not Detect); Cannabinoid Screen Urine POSITIVE (Not Detect); Cocaine Screen Urine Not Detected (Not Detect); Fentanyl, urine Not Detected (Not Detect); Opiate Screen Urine POSITIVE (Not Detect); Phencyclidine Screen Urine Not Detected (Not Detect)
--- NOTE | 2022-07-23 08:07 | PC.NURSE ---
Ortho in meeting with pt
[2022-07-23 08:13] VITALS: BP 148/59; PULSE 66; RESP 14
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
--- NOTE | 2022-07-23 08:43 | PHA.MEDREC ---
Pharmacy Consult ? Medication Reconciliation Pharmacy has completed the medication reconciliation. Patient confirmed all medications. Kaitlin Spann, SharD
[2022-07-23 09:02] LABS: MANUAL DIFF FLAG NO
[2022-07-23 09:10] LABS: Basophils Absolute Auto 0.1 X10*3/uL (0.0-0.2); Basophils Percent Auto 0.3 % (0-2); Eosinophils Absolute Auto 0.1 X10*3/uL (0.0-0.4); Eosinophils Percent Auto 0.4 % (0-4); Hematocrit 36.3 % (37.0-47.0); Imm Gran Abs Auto 0.09 X10*3/uL (0.00-0.03); Imm Gran Pct Auto 0.5 % (0.0-0.4); Lymphocytes Percent Auto 11.5 % (20-40); Mean Corpuscular HGB Conc 33.1 g/dl (31.0-35.0); Mean Corpuscular Hemoglobin 29.9 pg (27.0-33.0); Mean Corpuscular Volume 90.5 fL (80.0-98.0); Mean Platelet Volume 9.7 fL (9.4-12.3); Monocytes Absolute Auto 0.9 X10*3/uL (0.1-1.2); Monocytes Percent Auto 5.3 % (2-11); Neutrophils Absolute Auto 13.9 x10*3/uL (2.0-8.3); Platelet Count 257 X10*3/uL (160-400); Red Blood Count 4.01 X10*6/uL (4.20-5.50); Red Cell Distribution Width 12.2 % (11.0-16.0); White Blood Count 16.9 X10*3/uL (4.8-10.8)
[2022-07-23 09:20] LABS: Anion Gap 16 (12-20); Blood Urea Nitrogen 17 mg/dL (9-16); Carbon Dioxide 22 mmol/L (22-29); Chloride 106 mmol/L (96-108); Creatinine Clr Calc Pharmacy 54.5; Estimated Glomerular Filt Rate > 60; Glucose Random 95 mg/dL (60-115); Potassium 4.2 mmol/L (3.3-5.1); Sodium 140 mmol/L (135-145)
--- NOTE | 2022-07-23 09:47 | MHC.CM.PN ---
Patient has a diagnosis of Dementia; CM spoke with Son/HCP/Jimmy @ [phone] and addressed IMM with him (original to be mailed certified letter to Jimmy and a copy to be placed on the chart). 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 Patient has received Skyrider/QuikCycle vax x2 and her PCP is Dr. Frandy Raymond.
[2022-07-23] MEDS: 0.9 % Sodium Chloride Flush 3 ML SYRINGE IVFLUSH ×3 (10:13→22:04)
[2022-07-23] MEDS: Atorvastatin Calcium 40 MG TABLET PO (10:13)
[2022-07-23] MEDS: Ezetimibe 10 MG TABLET PO (10:13)
--- NOTE | 2022-07-23 12:43 | PC.NURSE ---
16 Fr Peraza inserted
--- NOTE | 2022-07-23 12:58 | P.PNIM_ITS ---
Subjective Subjective Date of Service: 07/23/22 Interval History: cc: fall interval history:hip pain Cardiovascular Cardiovascular: Reports no additional cardiovascular complaints Respiratory Respiratory: Reports no additional respiratory complaints Physical Exam Vital Signs: Vital Signs: Last Vital Signs Temp 98.4 F 07/23/22 05:51 Pulse 66 07/23/22 08:13 Resp 14 07/23/22 08:13 BP 148/59 H 07/23/22 08:13 Pulse Ox 94 07/23/22 05:51 O2 Del Method 07/23/22 05:51 BMI result Body Mass Index 30.2 General: AO X 3, no acute distress Resp: CTA bilateral, no accessory muscles used CVS: S1,S2,RRR GI: soft, non tender, non distended Neuro: motor grossly intact, alert Psych: appropriate affect, appropriate insight Objective Data Active Medications Acetaminophen (Acetaminophen 325 Mg Tablet) 650 mg PO Q6H PRN PRN Reason: Pain, Mild (Pain Scale 1-3) Atorvastatin Calcium (Atorvastatin Calcium 40 Mg Tablet) 40 mg PO DAILY [facility] Last Admin: 07/23/22 10:13 Dose: 40 mg Documented By: ELI Ezetimibe (Ezetimibe 10 Mg Tablet) 10 mg PO DAILY [facility] Last Admin: 07/23/22 10:13 Dose: 10 mg Documented By: ELI Melatonin (Melatonin 3 Mg Tablet) 6 mg PO BEDTIME PRN PRN Reason: Insomnia Morphine Sulfate (Morphine Sulfate 4 Mg/Ml Cartridge) 4 mg IVPUSH Q4H PRN; Protocol PRN Reason: Pain, Severe (Pain Scale 7-10) Last Admin: 07/23/22 12:51 Dose: 4 mg Documented By: DANNIE Ondansetron HCl (Ondansetron Hcl 4 Mg/2 Ml Vial) 4 mg IVPUSH Q8H PRN PRN Reason: Nausea and Vomiting Last Admin: 07/23/22 06:03 Dose: 4 mg Documented By: SHEKHAR Pharmacy Consult (Consult Rx Perform Med Rec) 1 each MISCELLANE ONCE PRN PRN Reason: Consult order Sodium Chloride (0.9 % Sodium Chloride Flush 3 Ml Syringe) 3 ml IVFLUSH QSHIFT [facility] Last Admin: 07/23/22 10:13 Dose: 3 ml Documented By: ELI Labs CBC & Chem 7: 07/23/22 08:25 07/23/22 08:25 Labs: Laboratory Results - last 24 hr 07/22/22 07/22/22 07/22/22 23:49 23:49 23:49 MCV 91.2 MCH 30.1 MCHC 33.0 RDW 12.2 Plt Count 253 D MPV 9.6 Immature Gran % (Auto) 0.9 H Neut % (Auto) 82.8 H Lymph % (Auto) 9.7 L [place] % (Auto) 5.4 Eos % (Auto) 0.8 Baso % (Auto) 0.4 Lymph # (Auto) 1.7 [place] # (Auto) 1.0 Eos # (Auto) 0.1 Baso # (Auto) 0.1 Abs Immat Gran (auto) 0.15 H Absolute Neuts (auto) 14.5 H Absolute Nucleated RBC 0.000 Nucleated RBC % (auto) 0.0 PT INR APTT Anion Gap 23 H Estim Creat Clear Calc 50.7 Estimated GFR > 60 Random Glucose 134 H Calcium 9.3 D Total Bilirubin 0.3 AST 29 ALT 22 Alkaline Phosphatase 116 Total Protein 8.1 H Albumin 4.4 Lipase 16 Urine Color Urine Appearance Urine pH Ur Specific [place] Urine Protein Urine Glucose (UA) Urine Ketones Urine Blood Urine Nitrite Ur Leukocyte Esterase Urine Opiates Screen Urine Fentanyl Screen Ur Barbiturates Screen Ur Phencyclidine Scrn Ur Amphetamines Screen U Benzodiazepines Scrn Urine Cocaine Screen U Marijuana (THC) Screen Ethyl Alcohol < 10 COVID-19 (RACHAEL) COVID-19 Clin Com Influenza Type A (LUCI) Cancelled Influenza Type B (LUCI) Cancelled Influenza A & B Note Cancelled 07/22/22 07/23/22 07/23/22 23:49 01:13 02:03 MCV MCH MCHC RDW Plt Count MPV Immature Gran % (Auto) Neut % (Auto) Lymph % (Auto) [place] % (Auto) Eos % (Auto) Baso % (Auto) Lymph # (Auto) [place] # (Auto) Eos # (Auto) Baso # (Auto) Abs Immat Gran (auto) Absolute Neuts (auto) Absolute Nucleated RBC Nucleated RBC % (auto) PT 12.4 INR 1.1 APTT 28.9 Anion Gap Estim Creat Clear Calc Estimated GFR Random Glucose Calcium Total Bilirubin AST ALT Alkaline Phosphatase Total Protein Albumin Lipase Urine Color Urine Appearance Urine pH Ur Specific [place] Urine Protein Urine Glucose (UA) Urine Ketones Urine Blood Urine Nitrite Ur Leukocyte Esterase Urine Opiates Screen Urine Fentanyl Screen Ur Barbiturates Screen Ur Phencyclidine Scrn Ur Amphetamines Screen U Benzodiazepines Scrn Urine Cocaine Screen U Marijuana (THC) Screen Ethyl Alcohol COVID-19 (RACHAEL) Negative COVID-19 Clin Com See Note Influenza Type A (LUCI) Negative Influenza Type B (LUCI) Negative Influenza A & B Note See Note 07/23/22 07/23/22 07/23/22 05:58 05:58 08:25 MCV 90.5 MCH 29.9 MCHC 33.1 RDW 12.2 Plt Count 257 MPV 9.7 Immature Gran % (Auto) 0.5 H Neut % (Auto) 82.0 H Lymph % (Auto) 11.5 L [place] % (Auto) 5.3 Eos % (Auto) 0.4 Baso % (Auto) 0.3 Lymph # (Auto) 2.0 [place] # (Auto) 0.9 Eos # (Auto) 0.1 Baso # (Auto) 0.1 Abs Immat Gran (auto) 0.09 H Absolute Neuts (auto) 13.9 H Absolute Nucleated RBC 0.000 Nucleated RBC % (auto) 0.0 PT INR APTT Anion Gap Estim Creat Clear Calc Estimated GFR Random Glucose Calcium Total Bilirubin AST ALT Alkaline Phosphatase Total Protein Albumin Lipase Urine Color Yellow Urine Appearance Clear Urine pH 6.5 Ur Specific [place] 1.020 Urine Protein Trace Urine Glucose (UA) Negative Urine Ketones Trace Urine Blood Negative Urine Nitrite Negative Ur Leukocyte Esterase Negative Urine Opiates Screen POSITIVE H Urine Fentanyl Screen Not Detected Ur Barbiturates Screen Not Detected Ur Phencyclidine Scrn Not Detected Ur Amphetamines Screen Not Detected U Benzodiazepines Scrn Not Detected Urine Cocaine Screen Not Detected U Marijuana (THC) Screen POSITIVE H Ethyl Alcohol COVID-19 (RACHAEL) COVID-19 Clin Com Influenza Type A (LUCI) Influenza Type B (LUCI) Influenza A & B Note 07/23/22 08:25 MCV MCH MCHC RDW Plt Count MPV Immature Gran % (Auto) Neut % (Auto) Lymph % (Auto) [place] % (Auto) Eos % (Auto) Baso % (Auto) Lymph # (Auto) [place] # (Auto) Eos # (Auto) Baso # (Auto) Abs Immat Gran (auto) Absolute Neuts (auto) Absolute Nucleated RBC Nucleated RBC % (auto) PT INR APTT Anion Gap 16 Estim Creat Clear Calc 54.5 Estimated GFR > 60 Random Glucose 95 Calcium 9.0 Total Bilirubin AST ALT Alkaline Phosphatase Total Protein Albumin Lipase Urine Color Urine Appearance Urine pH Ur Specific [place] Urine Protein Urine Glucose (UA) Urine Ketones Urine Blood Urine Nitrite Ur Leukocyte Esterase Urine Opiates Screen Urine Fentanyl Screen Ur Barbiturates Screen Ur Phencyclidine Scrn Ur Amphetamines Screen U Benzodiazepines Scrn Urine Cocaine Screen U Marijuana (THC) Screen Ethyl Alcohol COVID-19 (RACHAEL) COVID-19 Clin Com Influenza Type A (LUCI) Influenza Type B (LUCI) Influenza A & B Note Assessment and Plan (1) Dementia: Status: Acute Plan ?76-year-old female with pertinent history of mixed hyperlipidemia, essential hypertension, dementia who presented to the emergency department for evaluation of left hip pain. Acute Left femoral neck fracture due to mechanical fall plan for OR today Mixed hyperlipidemia lipitor dementia - unspecified stable Full code reason for continued hospitalization:plan for surgery today Quality Stroke Does the patient have a stroke diagnosis?: No VTE Prior VTE?: No VTE Risk Level:: Medical - moderate - high VTE Device Contraindication: Treatment Not Indicated VTE Drug Contraindication: Treatment Not Indicated
[2022-07-23] MEDS: Acetaminophen 325 MG TABLET 650 MG PO (17:09)
[2022-07-23 21:28] VITALS: BMI 31.1
[2022-07-23 21:54] VITALS: BP 165/72; PULSE 68; RESP 18; TEMP 36.6; O2SAT 97
[2022-07-23] MEDS: Melatonin 3 MG TABLET 6 MG PO (21:54)
[2022-07-24] VITALS (17 sets, daily range): BP systolic 136–177; BP diastolic 59–78; PULSE 70–89; RESP 14–20; TEMP 36.2–37.7; O2SAT 90–100
[2022-07-24 06:24] LABS: Hematocrit 35.1 % (37.0-47.0); Hemoglobin 11.3 g/dl (12.0-16.0); Mean Corpuscular HGB Conc 32.2 g/dl (31.0-35.0); Mean Corpuscular Hemoglobin 29.1 pg (27.0-33.0); Mean Corpuscular Volume 90.5 fL (80.0-98.0); Mean Platelet Volume 9.7 fL (9.4-12.3); Platelet Count 233 X10*3/uL (160-400); Red Blood Count 3.88 X10*6/uL (4.20-5.50); Red Cell Distribution Width 12.4 % (11.0-16.0); White Blood Count 13.8 X10*3/uL (4.8-10.8)
[2022-07-24 06:43] LABS: Anion Gap 12 (12-20); Blood Urea Nitrogen 23 mg/dL (9-16); Calcium 9.2 mg/dL (8.4-10.2); Carbon Dioxide 30 mmol/L (22-29); Chloride 103 mmol/L (96-108); Creatinine Clr Calc Pharmacy 50.8; Estimated Glomerular Filt Rate > 60; Glucose Fasting 120 mg/dL (60-99); Potassium 4.5 mmol/L (3.3-5.1); Sodium 140 mmol/L (135-145)
[2022-07-24] MEDS: Morphine Sulfate 4 MG/ML CARTRIDGE IVPUSH ×3 (08:01→20:07)
--- NOTE | 2022-07-24 09:28 | HO.PM.IMPN ---
Subjective Subjective Date of Service: 07/24/22 Interval History: cc: fall interval history:hip pain Cardiovascular Cardiovascular: Reports no additional cardiovascular complaints Respiratory Respiratory: Reports no additional respiratory complaints Physical Exam Vital Signs: Vital Signs: Last Vital Signs Temp 99 F 07/24/22 09:01 Pulse 70 07/24/22 09:01 Resp 18 07/24/22 09:01 BP 152/59 H 07/24/22 09:01 Pulse Ox 92 07/24/22 09:01 O2 Del Method 07/24/22 09:01 BMI result Body Mass Index 31.1 General: AO X 3, no acute distress Resp: CTA bilateral, no accessory muscles used CVS: S1,S2,RRR GI: soft, non tender, non distended Neuro: motor grossly intact, alert Psych: appropriate affect, appropriate insight Objective Data Active Medications Acetaminophen (Acetaminophen 325 Mg Tablet) 650 mg PO Q6H PRN PRN Reason: Pain, Mild (Pain Scale 1-3) Last Admin: 07/23/22 17:09 Dose: 650 mg Documented By: DANNIE Atorvastatin Calcium (Atorvastatin Calcium 40 Mg Tablet) 40 mg PO DAILY [facility] Last Admin: 07/23/22 10:13 Dose: 40 mg Documented By: ELI Ezetimibe (Ezetimibe 10 Mg Tablet) 10 mg PO DAILY [facility] Last Admin: 07/23/22 10:13 Dose: 10 mg Documented By: ELI Melatonin (Melatonin 3 Mg Tablet) 6 mg PO BEDTIME PRN PRN Reason: Insomnia Last Admin: 07/23/22 21:54 Dose: 6 mg Documented By: YA Morphine Sulfate (Morphine Sulfate 4 Mg/Ml Cartridge) 4 mg IVPUSH Q4H PRN; Protocol PRN Reason: Pain, Severe (Pain Scale 7-10) Last Admin: 07/24/22 08:01 Dose: 4 mg Documented By: JOHAN Ondansetron HCl (Ondansetron Hcl 4 Mg/2 Ml Vial) 4 mg IVPUSH Q8H PRN PRN Reason: Nausea and Vomiting Last Admin: 07/23/22 06:03 Dose: 4 mg Documented By: SHEKHAR Pharmacy Consult (Consult Rx Perform Med Rec) 1 each MISCELLANE ONCE PRN PRN Reason: Consult order Sodium Chloride (0.9 % Sodium Chloride Flush 3 Ml Syringe) 3 ml IVFLUSH QSHIFT [facility] Last Admin: 07/23/22 22:04 Dose: 3 ml Documented By: SHANTELL Labs CBC & Chem 7: 07/24/22 05:16 07/24/22 05:16 Labs: Laboratory Results - last 24 hr 07/24/22 07/24/22 05:16 05:16 MCV 90.5 MCH 29.1 MCHC 32.2 RDW 12.4 Plt Count 233 MPV 9.7 Absolute Nucleated RBC 0.000 Nucleated RBC % (auto) 0.0 Anion Gap 12 Estim Creat Clear Calc 50.8 Estimated GFR > 60 Fasting Glucose 120 H Calcium 9.2 Assessment and Plan (1) Dementia: Status: Acute Plan ?76-year-old female with pertinent history of mixed hyperlipidemia, essential hypertension, dementia who presented to the emergency department for evaluation of left hip pain. Acute Left femoral neck fracture due to mechanical fall plan for OR today Mixed hyperlipidemia lipitor dementia - unspecified stable Full code reason for continued hospitalization:plan for surgery today Quality Stroke Does the patient have a stroke diagnosis?: No VTE Prior VTE?: No VTE Risk Level:: Medical - moderate - high VTE Device Contraindication: Treatment Not Indicated VTE Drug Contraindication: Treatment Not Indicated
--- NOTE | 2022-07-24 09:59 | MHC.SHP ---
Pre-Procedural Eval Section A Date of Service: 07/24/22 The patient is an INPATIENT: Yes Changes since office visit: Yes Patient answered all questions; No Cold of Flu in the past 2 weeks, No New Medical Problems and No Changes in Medication The History & Physical has been completed within 30 days and I have reviewed it.: Yes Section B Chief Complaint: Left Hip Pain Allergies: Allergies Allergy/AdvReac Type Severity Reaction Status Date / Time Penicillins [PENICILLINS] Allergy Unknown ITCHING Verified 01/09/22 09:13 Plan I have reviewed the history and physical and performed a pertinent physical examination on my patient. No changes have occurred unless specified.
--- NOTE | 2022-07-24 11:04 | PM.OP ---
Brief Operative Note Date of Service: 07/24/22 Pre-op diagnosis: valgus impacted left femoral neck fracture Post-op diagnosis: same Procedure: CRPP left femoral neck Implants: [place] 6.6 partially threaded cannulated screw x 3 Surgeon: Kyle Floyd MD Anesthesia: GETA and local Was an Assistant Produce Manager used for this Procedure?: No Estimated blood loss (mL): 20 IV fluids (mL): 500 Pathology: none sent Condition: stable Disposition: PACU
--- NOTE | 2022-07-24 11:07 | W.PM.OPN ---
Operative Note Operative Note Date of Service: 07/24/22 Narrative: Date of Service: 07/24/22 Pre-op diagnosis: valgus impacted left femoral neck fracture Post-op diagnosis: same Procedure: CRPP left femoral neck Implants: [place] 6.6 partially threaded cannulated screw x 3 Surgeon: Kyle Floyd MD Anesthesia: GETA and local Was an Field Artillery Crewmember used for this Procedure?: No Estimated blood loss (mL): 20 IV fluids (mL): 500 Pathology: none sent Condition: stable Disposition: PACU Procedure in detail: Patient was brought to the operating room and prepped and draped in standard sterile fashion. Time-out was called to identify proper site procedure proper surgeon and IV antibiotics per weight were administered. She was positioned on the fracture table and a biplanar fluoroscopy confirmed fracture position. This was a stable valgus impacted left femoral neck fracture. I made a stab incision proximal to the lesser trochanter. A 4.5 threaded guidewire was placed inferionr and posterior along the calcar. Biplanar fluoroscopy was used to confirm positioning. This process was repeated proximally in an inverted triangle configuration. Once I was satisfied with the positioning on the AP and lateral projections I measured and then overdrilled and placed the three screws across the femoral neck fracture and into the femoral head. I was satisfied with the length and alignment. Therefore the wound was irrigated and then closed with absorbable suture and christopher. The patient was placed in sterile dressing awakened from anesthesia brought to recovery room stable condition there were no known complications.
--- NOTE | 2022-07-24 11:11 | HO.ANESPROP2 ---
HPI - Anesthesia Eval Consult details Narrative: 76 F for perc pinning L hip fxt PMFSH Active Problems Active Problems: All Active Problems (Updated 07/23/22 @ 02:39 by Oneyda Last MD) Dementia (Acute) Hyperlipemia (Acute) Hypertension (Acute) Fall (Acute) Closed subcapital fracture of left femur (Acute) Closed head injury (Acute) Abdominal pain (Acute) Leukocytosis (Acute) Diverticulitis (Acute) Past Medical History Medical History Dementia Hyperlipemia Hypertension No pertinent past medical history Family History Family history of problems with anesthesia: No Surgical History History of Problems with Anesthesia: No Social History Social History Household Members: Children Housing: House Do you presently have visiting nurse or other home services: No Alcohol intake: never Patient Tobacco Use Status: Never used Tobacco Smoked in Last 30 Days: No Use of substances other than those prescribed or required for medical reasons: Yes Substance Use Type Other:: smoked Substance Use Frequency: Monthly Currently Displaying Signs/Symptoms of Drug Intoxication Withdrawal: No Have you been hit, kicked, punched, or otherwise hurt by someone within the past year? If so, by whom?: No Do you feel safe in your current relationship?: No Current Relationship Is there a partner from a previous relationship who is making you feel unsafe now?: No Are you made to feel afraid or neglected: No Are you DNR?: No Advance Directives: No Advance Directives Information Provided: No Do you have thoughts of harming others: None Do you have a plan to hurt others: No Plan Recently lost weight without trying: Yes How much weight loss: 34pounds or more Eating poorly because of decreased appetite: No Nutrition screen score: 6 Nutrition Risks: No Nutritional Risk Patient : No : No Poor oral hygiene: No service: No Current occupational status: employed Meds Allergies Allergy/AdvReac Type Severity Reaction Status Date / Time Penicillins [PENICILLINS] Allergy Unknown ITCHING Verified 01/09/22 09:13 Active Medications: Current Medications Acetaminophen (Acetaminophen 325 Mg Tablet) 650 mg PO Q6H PRN PRN Reason: Pain, Mild (Pain Scale 1-3) Last Admin: 12/05/22 17:09 Dose: 650 mg Atorvastatin Calcium (Atorvastatin Calcium 40 Mg Tablet) 40 mg PO DAILY [facility] Last Admin: 07/23/22 10:13 Dose: 40 mg Ezetimibe (Ezetimibe 10 Mg Tablet) 10 mg PO DAILY [facility] Last Admin: 07/23/22 10:13 Dose: 10 mg Hydromorphone HCl (Hydromorphone Hcl 0.5 Mg/0.5 Ml Syringe) 0.25 mg IVPUSH Q5M PRN; Protocol PRN Reason: Pain, Severe (Pain Scale 7-10) Acetaminophen (Ofirmev) 1,000 mg in 100 mls @ 400 mls/hr IV ONCE ONE Stop: 07/24/22 11:18 Melatonin (Melatonin 3 Mg Tablet) 6 mg PO BEDTIME PRN PRN Reason: Insomnia Last Admin: 07/23/22 21:54 Dose: 6 mg Morphine Sulfate (Morphine Sulfate 4 Mg/Ml Cartridge) 4 mg IVPUSH Q4H PRN; Protocol PRN Reason: Pain, Severe (Pain Scale 7-10) Last Admin: 07/24/22 08:01 Dose: 4 mg Ondansetron HCl (Ondansetron Hcl 4 Mg/2 Ml Vial) 4 mg IVPUSH Q8H PRN PRN Reason: Nausea and Vomiting Last Admin: 07/23/22 06:03 Dose: 4 mg Oxycodone HCl (Oxycodone Hcl Immed Release 5 Mg Tablet) 5 mg PO ONCE PRN PRN Reason: Pain, Severe (Pain Scale 7-10) Pharmacy Consult (Consult Rx Perform Med Rec) 1 each MISCELLANE ONCE PRN PRN Reason: Consult order Sodium Chloride (0.9 % Sodium Chloride Flush 3 Ml Syringe) 3 ml IVFLUSH QSHIFT [facility] Last Admin: 07/23/22 22:04 Dose: 3 ml Home Medications Medication Instructions Recorded Confirmed Last Taken Type acetaminophen 325 mg tablet 325 mg PO BEDTIME PRN Pain 07/23/22 07/23/22 07/22/22 History atorvastatin 40 mg tablet 1 tab PO DAILY 07/23/22 07/23/22 07/22/22 History ezetimibe 10 mg tablet 1 tab PO DAILY 07/23/22 07/23/22 07/22/22 History Exam Exam Date and Time: July 24, 2022 1111 Height,Weight and Vital Signs: Height 5 ft 1 in Weight 164 lb 14.492 oz Last Vital Signs Temp 99 F 07/24/22 09:01 Pulse 70 07/24/22 09:01 Resp 18 07/24/22 09:01 BP 152/59 H 07/24/22 09:01 Pulse Ox 92 07/24/22 09:01 O2 Del Method 07/24/22 09:01 Pertinent Lab Results Pertinent Lab Results: Laboratory Tests 07/22/22 07/22/22 07/22/22 23:49 23:49 23:49 WBC 17.5 H RBC 4.45 Hgb 13.4 Hct 40.6 MCV 91.2 MCH 30.1 MCHC 33.0 RDW 12.2 Plt Count 253 D MPV 9.6 Immature Gran % (Auto) 0.9 H Neut % (Auto) 82.8 H Lymph % (Auto) 9.7 L [place] % (Auto) 5.4 Eos % (Auto) 0.8 Baso % (Auto) 0.4 Lymph # (Auto) 1.7 [place] # (Auto) 1.0 Eos # (Auto) 0.1 Baso # (Auto) 0.1 Abs Immat Gran (auto) 0.15 H Absolute Neuts (auto) 14.5 H Absolute Nucleated RBC 0.000 Nucleated RBC % (auto) 0.0 PT INR APTT Sodium 141 Potassium 3.9 Chloride 102 Carbon Dioxide 20 L Anion Gap 23 H BUN 19 H Creatinine 0.86 Estim Creat Clear Calc 50.7 Estimated GFR > 60 Random Glucose 134 H Fasting Glucose Calcium 9.3 D Total Bilirubin 0.3 AST 29 ALT 22 Alkaline Phosphatase 116 Total Protein 8.1 H Albumin 4.4 Lipase 16 Urine Color Urine Appearance Urine pH Ur Specific Crete Urine Protein Urine Glucose (UA) Urine Ketones Urine Blood Urine Nitrite Ur Leukocyte Esterase Urine Opiates Screen Urine Fentanyl Screen Ur Barbiturates Screen Ur Phencyclidine Scrn Ur Amphetamines Screen U Benzodiazepines Scrn Urine Cocaine Screen U Marijuana (THC) Screen Ethyl Alcohol < 10 COVID-19 (RACHAEL) COVID-19 Clin Com Influenza Type A (LUCI) Cancelled Influenza Type B (LUCI) Cancelled Influenza A & B Note Cancelled 07/22/22 07/23/22 07/23/22 23:49 01:13 02:03 WBC RBC Hgb Hct MCV MCH MCHC RDW Plt Count MPV Immature Gran % (Auto) Neut % (Auto) Lymph % (Auto) [place] % (Auto) Eos % (Auto) Baso % (Auto) Lymph # (Auto) [place] # (Auto) Eos # (Auto) Baso # (Auto) Abs Immat Gran (auto) Absolute Neuts (auto) Absolute Nucleated RBC Nucleated RBC % (auto) PT 12.4 INR 1.1 APTT 28.9 Sodium Potassium Chloride Carbon Dioxide Anion Gap BUN Creatinine Estim Creat Clear Calc Estimated GFR Random Glucose Fasting Glucose Calcium Total Bilirubin AST ALT Alkaline Phosphatase Total Protein Albumin Lipase Urine Color Urine Appearance Urine pH Ur Specific Crete Urine Protein Urine Glucose (UA) Urine Ketones Urine Blood Urine Nitrite Ur Leukocyte Esterase Urine Opiates Screen Urine Fentanyl Screen Ur Barbiturates Screen Ur Phencyclidine Scrn Ur Amphetamines Screen U Benzodiazepines Scrn Urine Cocaine Screen U Marijuana (THC) Screen Ethyl Alcohol COVID-19 (RACHAEL) Negative COVID-19 Clin Com See Note Influenza Type A (LUCI) Negative Influenza Type B (LUCI) Negative Influenza A & B Note See Note 07/23/22 07/23/22 07/23/22 05:58 05:58 08:25 WBC 16.9 H RBC 4.01 L Hgb 12.0 Hct 36.3 L MCV 90.5 MCH 29.9 MCHC 33.1 RDW 12.2 Plt Count 257 MPV 9.7 Immature Gran % (Auto) 0.5 H Neut % (Auto) 82.0 H Lymph % (Auto) 11.5 L [place] % (Auto) 5.3 Eos % (Auto) 0.4 Baso % (Auto) 0.3 Lymph # (Auto) 2.0 [place] # (Auto) 0.9 Eos # (Auto) 0.1 Baso # (Auto) 0.1 Abs Immat Gran (auto) 0.09 H Absolute Neuts (auto) 13.9 H Absolute Nucleated RBC 0.000 Nucleated RBC % (auto) 0.0 PT INR APTT Sodium Potassium Chloride Carbon Dioxide Anion Gap BUN Creatinine Estim Creat Clear Calc Estimated GFR Random Glucose Fasting Glucose Calcium Total Bilirubin AST ALT Alkaline Phosphatase Total Protein Albumin Lipase Urine Color Yellow Urine Appearance Clear Urine pH 6.5 Ur Specific Crete 1.020 Urine Protein Trace Urine Glucose (UA) Negative Urine Ketones Trace Urine Blood Negative Urine Nitrite Negative Ur Leukocyte Esterase Negative Urine Opiates Screen POSITIVE H Urine Fentanyl Screen Not Detected Ur Barbiturates Screen Not Detected Ur Phencyclidine Scrn Not Detected Ur Amphetamines Screen Not Detected U Benzodiazepines Scrn Not Detected Urine Cocaine Screen Not Detected U Marijuana (THC) Screen POSITIVE H Ethyl Alcohol COVID-19 (RACHAEL) COVID-19 Clin Com Influenza Type A (LUCI) Influenza Type B (LUCI) Influenza A & B Note 07/23/22 07/24/22 07/24/22 08:25 05:16 05:16 WBC 13.8 H RBC 3.88 L Hgb 11.3 L Hct 35.1 L MCV 90.5 MCH 29.1 MCHC 32.2 RDW 12.4 Plt Count 233 MPV 9.7 Immature Gran % (Auto) Neut % (Auto) Lymph % (Auto) [place] % (Auto) Eos % (Auto) Baso % (Auto) Lymph # (Auto) [place] # (Auto) Eos # (Auto) Baso # (Auto) Abs Immat Gran (auto) Absolute Neuts (auto) Absolute Nucleated RBC 0.000 Nucleated RBC % (auto) 0.0 PT INR APTT Sodium 140 140 Potassium 4.2 4.5 Chloride 106 103 Carbon Dioxide 22 30 H Anion Gap 16 12 BUN 17 H 23 H Creatinine 0.80 0.87 Estim Creat Clear Calc 54.5 50.8 Estimated GFR > 60 > 60 Random Glucose 95 Fasting Glucose 120 H Calcium 9.0 9.2 Total Bilirubin AST ALT Alkaline Phosphatase Total Protein Albumin Lipase Urine Color Urine Appearance Urine pH Ur Specific Crete Urine Protein Urine Glucose (UA) Urine Ketones Urine Blood Urine Nitrite Ur Leukocyte Esterase Urine Opiates Screen Urine Fentanyl Screen Ur Barbiturates Screen Ur Phencyclidine Scrn Ur Amphetamines Screen U Benzodiazepines Scrn Urine Cocaine Screen U Marijuana (THC) Screen Ethyl Alcohol COVID-19 (RACHAEL) COVID-19 Clin Com Influenza Type A (LUCI) Influenza Type B (LUCI) Influenza A & B Note Airway Mallampati Class: II TM Dist: >3cm Neck ROM: Full Loose/Missing/Broken Teeth: Yes Assessment and Plan Assessment Anesthesia Assessment: Anesthesia Plan Discussed Final Anesthetic Review Family History of Problems with Anesthesia: No History of Problems with Anesthesia: No NPO: Yes ASA Class: III Final Preanesthetic Review: No Changes in Pt Med Stat, Meds/Allgs Chart Reviewed, Consent Obtained/Reviewed and Anes Risks/Benef Reviewed Patient Risk: Intermediate Procedure Risk: Low Anesthetic Plan Anesthetic Plan: GA Disposition: Standard PACU
[2022-07-24] MEDS: Acetaminophen 1,000 MG/100 ML PIGGYBACK 400 MG IV (11:25)
[2022-07-24] MEDS: HYDROmorphone HCl 0.5 MG/0.5 ML SYRINGE 0.25 MG IVPUSH ×2 (11:37→11:47)
[2022-07-24] MEDS: oxyCODONE HCl Immed Release 5 MG TABLET PO (12:03)
[2022-07-24] MEDS: ceFAZolin Sodium/Dextrose,Iso 2 GM/50 ML PIGGYBACK IV (16:09)
[2022-07-24] MEDS: 0.9 % Sodium Chloride Flush 3 ML SYRINGE IVFLUSH (16:18)
[2022-07-25] MEDS: 0.9 % Sodium Chloride Flush 3 ML SYRINGE IVFLUSH ×4 (00:55→21:19)
[2022-07-25] MEDS: Morphine Sulfate 4 MG/ML CARTRIDGE IVPUSH ×2 (01:00→09:30)
[2022-07-25 03:53] VITALS: BP 146/67; RESP 18; TEMP 37.1; O2SAT 94
[2022-07-25 05:32] LABS: Hematocrit 33.5 % (37.0-47.0); Mean Corpuscular HGB Conc 32.8 g/dl (31.0-35.0); Mean Corpuscular Hemoglobin 30.1 pg (27.0-33.0); Mean Corpuscular Volume 91.5 fL (80.0-98.0); Mean Platelet Volume 9.9 fL (9.4-12.3); Platelet Count 225 X10*3/uL (160-400); Red Blood Count 3.66 X10*6/uL (4.20-5.50); Red Cell Distribution Width 11.9 % (11.0-16.0); White Blood Count 18.5 X10*3/uL (4.8-10.8)
[2022-07-25 05:48] LABS: Anion Gap 15 (12-20); Blood Urea Nitrogen 18 mg/dL (9-16); Calcium 9.4 mg/dL (8.4-10.2); Carbon Dioxide 31 mmol/L (22-29); Chloride 99 mmol/L (96-108); Estimated Glomerular Filt Rate > 60; Glucose Fasting 142 mg/dL (60-99); Potassium 4.8 mmol/L (3.3-5.1); Sodium 140 mmol/L (135-145)
--- NOTE | 2022-07-25 07:49 | PM.PNORT ---
Subjective Subjective Date of Service: 07/25/22 Interval history: POD1 s/p left hip pinning. Patient is resting in bed comfortably. No overnight events. Pain is managed. No additional complaints. Physical Exam Vital Signs: Vital Signs: Last Vital Signs Temp 98.7 F 07/25/22 03:53 Pulse 70 07/24/22 19:58 Resp 18 07/25/22 03:53 BP 146/67 H 07/25/22 03:53 Pulse Ox 94 07/25/22 03:53 O2 Del Method 07/25/22 03:53 O2 Flow Rate 2 07/24/22 14:00 BMI result Body Mass Index 31.1 Const: General: cooperative, healthy appearing and no acute distress Resp: Effort & Inspection: normal respiratory effort and able to speak in complete sentences Cardio: Rate: regular rate Peripheral pulses: Peripheral pulses 2+ throughout GI: Palpation (GI): Soft to palpation Skin: Lesions: no lesions Rashes: no rashes Extrem: Other: Left hip bandages are c/d/i. NVI. Procedures Date of Service Date of Service: 07/25/22 Progress Note: A&P Assessment and plan (1) Closed subcapital fracture of left femur: Status: Acute Plan Continue pain mgmnt Begin Lovenox for dvt ppx x 6weeks begin PT for left hip CRPP - WBAT Dispo planning-Pending PT eval, pain mgmnt Time Spent With Patient Time: Total time spent is greater than 50% in coordination of care (as documented) at patient's floor/unit and/or counseling patient: Quality Stroke Does the patient have a stroke diagnosis?: No VTE Prior VTE?: No VTE Risk Level:: Medical - moderate - high VTE Device Contraindication: Treatment Not Indicated VTE Drug Contraindication: Treatment Not Indicated
[2022-07-25 08:00] VITALS: BP 164/71; PULSE 71; RESP 18; TEMP 37.1; O2SAT 96
[2022-07-25] MEDS: Enoxaparin Sodium 40 MG/0.4 ML SYRINGE SUBCUT (09:30)
[2022-07-25] MEDS: Ezetimibe 10 MG TABLET PO (09:30)
[2022-07-25] MEDS: Atorvastatin Calcium 40 MG TABLET PO (09:30)
--- NOTE | 2022-07-25 10:13 | HO.PM.IMPN ---
Subjective Subjective Date of Service: 07/25/22 Interval History: cc: fall interval history:hip pain Cardiovascular Cardiovascular: Reports no additional cardiovascular complaints Respiratory Respiratory: Reports no additional respiratory complaints Physical Exam Vital Signs: Vital Signs: Last Vital Signs Temp 98.8 F 07/25/22 08:00 Pulse 71 07/25/22 08:00 Resp 18 07/25/22 08:00 BP 164/71 H 07/25/22 08:00 Pulse Ox 96 07/25/22 08:00 O2 Del Method 07/25/22 08:00 O2 Flow Rate 96 07/25/22 08:00 BMI result Body Mass Index 31.1 Const: General: cooperative, healthy appearing and no acute distress Resp: Effort & Inspection: normal respiratory effort and able to speak in complete sentences Cardio: Rate: regular rate Peripheral pulses: Peripheral pulses 2+ throughout GI: Palpation (GI): Soft to palpation Skin: Lesions: no lesions Rashes: no rashes Extrem: Other: Left hip bandages are c/d/i. NVI. Objective Data Active Medications Acetaminophen (Acetaminophen 325 Mg Tablet) 650 mg PO Q6H PRN PRN Reason: Pain, Mild (Pain Scale 1-3) Last Admin: 07/23/22 17:09 Dose: 650 mg Documented By: DANNIE Atorvastatin Calcium (Atorvastatin Calcium 40 Mg Tablet) 40 mg PO DAILY [facility] Last Admin: 07/25/22 09:30 Dose: 40 mg Documented By: TOM Ezetimibe (Ezetimibe 10 Mg Tablet) 10 mg PO DAILY [facility] Last Admin: 07/25/22 09:30 Dose: 10 mg Documented By: TOM Enoxaparin Sodium (Enoxaparin Sodium 40 Mg/0.4 Ml Syringe) 40 mg SUBCUT Q24H [facility] Last Admin: 07/25/22 09:30 Dose: 40 mg Documented By: TOM Hydromorphone HCl (Hydromorphone Hcl 0.5 Mg/0.5 Ml Syringe) 0.25 mg IVPUSH Q5M PRN; Protocol PRN Reason: Pain, Severe (Pain Scale 7-10) Last Admin: 07/24/22 11:47 Dose: 0.25 mg Documented By: TIMUR Cefazolin Sodium/Dextrose (Ancef) 2 gm in 50 mls @ 100 mls/hr IV POSTOP [facility] Last Infusion: 07/24/22 16:57 Dose: 0 mls/hr Documented By: JOHAN Melatonin (Melatonin 3 Mg Tablet) 6 mg PO BEDTIME PRN PRN Reason: Insomnia Last Admin: 07/23/22 21:54 Dose: 6 mg Documented By: YA Morphine Sulfate (Morphine Sulfate 4 Mg/Ml Cartridge) 4 mg IVPUSH Q4H PRN; Protocol PRN Reason: Pain, Severe (Pain Scale 7-10) Last Admin: 07/25/22 09:30 Dose: 4 mg Documented By: TOM Ondansetron HCl (Ondansetron Hcl 4 Mg/2 Ml Vial) 4 mg IVPUSH Q8H PRN PRN Reason: Nausea and Vomiting Last Admin: 07/23/22 06:03 Dose: 4 mg Documented By: SHEKHAR Pharmacy Consult (Consult Rx Perform Med Rec) 1 each MISCELLANE ONCE PRN PRN Reason: Consult order Sodium Chloride (0.9 % Sodium Chloride Flush 3 Ml Syringe) 3 ml IVFLUSH QSHIFT [facility] Last Admin: 07/25/22 09:31 Dose: 3 ml Documented By: TOM Labs CBC & Chem 7: 07/25/22 05:03 07/25/22 05:03 Labs: Laboratory Results - last 24 hr 07/25/22 07/25/22 05:03 05:03 MCV 91.5 MCH 30.1 MCHC 32.8 RDW 11.9 Plt Count 225 MPV 9.9 Absolute Nucleated RBC 0.000 Nucleated RBC % (auto) 0.0 Anion Gap 15 Estim Creat Clear Calc 56.0 Estimated GFR > 60 Fasting Glucose 142 H Calcium 9.4 Assessment and Plan (1) Dementia: Status: Acute Plan ?76-year-old female with pertinent history of mixed hyperlipidemia, essential hypertension, dementia who presented to the emergency department for evaluation of left hip pain. Acute Left femoral neck fracture due to mechanical fall pod 1 Mixed hyperlipidemia lipitor dementia - unspecified stable Full code reason for continued hospitalization:post op monitor Quality Stroke Does the patient have a stroke diagnosis?: No VTE Prior VTE?: No VTE Risk Level:: Medical - moderate - high VTE Device Contraindication: Treatment Not Indicated VTE Drug Contraindication: Treatment Not Indicated
--- NOTE | 2022-07-25 10:56 | HO.POSTANES ---
Post Anesthesia Evaluation Post Anesthesia Evaluation Vital Signs: Vital Signs Temp Pulse Resp BP Pulse Ox O2 Del Method O2 Flow Rate 07/25/22 08:00 98.8 F 71 18 164/71 H 96 Room Air 96 07/25/22 03:53 98.7 F 18 146/67 H 94 Room Air Anesthesia: General Mental Status: Awake Pain Control: Satisfactory Nausea/Vomiting: None Hydration: Adequate Anesthesia-Related Issues: No Anes. Related Issues
[2022-07-25 11:43] VITALS: PULSE 71; O2SAT 96
[2022-07-25] MEDS: ondansetron HCL 4 MG/2 ML VIAL IVPUSH (12:51)
[2022-07-25 16:00] VITALS: BP 178/82; PULSE 80; RESP 18; TEMP 36.4; O2SAT 97
[2022-07-25] MEDS: oxyCODONE HCl Immed Release 5 MG TABLET PO ×2 (16:47→21:17)
[2022-07-25 20:00] VITALS: BP 178/73; PULSE 100; RESP 17; TEMP 36.5; O2SAT 94
[2022-07-26] VITALS (7 sets, daily range): BP systolic 126–170; BP diastolic 59–73; PULSE 69–95; RESP 16–18; TEMP 36.1–37.1; O2SAT 94–98
[2022-07-26] MEDS: oxyCODONE HCl Immed Release 5 MG TABLET PO ×4 (02:35→23:00)
[2022-07-26] MEDS: Acetaminophen 325 MG TABLET 650 MG PO (05:21)
[2022-07-26 05:55] LABS: Hematocrit 38.3 % (37.0-47.0); Hemoglobin 12.2 g/dl (12.0-16.0); Mean Corpuscular HGB Conc 31.9 g/dl (31.0-35.0); Mean Corpuscular Hemoglobin 29.2 pg (27.0-33.0); Mean Corpuscular Volume 91.6 fL (80.0-98.0); Mean Platelet Volume 9.5 fL (9.4-12.3); Platelet Count 240 X10*3/uL (160-400); Red Blood Count 4.18 X10*6/uL (4.20-5.50); Red Cell Distribution Width 12.2 % (11.0-16.0); White Blood Count 15.7 X10*3/uL (4.8-10.8)
[2022-07-26 06:08] LABS: Anion Gap 16 (12-20); Blood Urea Nitrogen 18 mg/dL (9-16); Calcium 9.3 mg/dL (8.4-10.2); Carbon Dioxide 25 mmol/L (22-29); Chloride 102 mmol/L (96-108); Creatinine Clr Calc Pharmacy 55.3; Estimated Glomerular Filt Rate > 60; Glucose Fasting 117 mg/dL (60-99); Potassium 4.1 mmol/L (3.3-5.1); Sodium 139 mmol/L (135-145)
[2022-07-26] MEDS: Ezetimibe 10 MG TABLET PO (08:21)
[2022-07-26] MEDS: Atorvastatin Calcium 40 MG TABLET PO (08:21)
[2022-07-26] MEDS: 0.9 % Sodium Chloride Flush 3 ML SYRINGE IVFLUSH (08:22)
[2022-07-26] MEDS: Morphine Sulfate 4 MG/ML CARTRIDGE IVPUSH (10:50)
[2022-07-26] MEDS: ondansetron HCL 4 MG/2 ML VIAL IVPUSH (10:50)
[2022-07-26] MEDS: Enoxaparin Sodium 40 MG/0.4 ML SYRINGE SUBCUT (10:50)
--- NOTE | 2022-07-26 11:15 | PM.PNORT ---
Subjective Subjective Date of Service: 07/26/22 Interval history: POD3 s/p left hip CRPP. Patient is resting in the recliner comfortably. No overnight events. Pain is well managmed. No additional complaints. Physical Exam Vital Signs: Vital Signs: Last Vital Signs Temp 96.9 F 07/26/22 07:32 Pulse 69 07/26/22 08:24 Resp 16 07/26/22 07:32 BP 147/69 H 07/26/22 07:32 Pulse Ox 96 07/26/22 08:24 O2 Del Method 07/26/22 07:32 O2 Flow Rate 96 07/25/22 08:00 BMI result Body Mass Index 31.1 Const: General: cooperative, healthy appearing and no acute distress Resp: Effort & Inspection: normal respiratory effort and able to speak in complete sentences Cardio: Rate: regular rate Peripheral pulses: Peripheral pulses 2+ throughout GI: Palpation (GI): Soft to palpation Skin: Lesions: no lesions Rashes: no rashes Extrem: Other: Left hip bandages are c/d/i. NVI. Procedures Date of Service Date of Service: 07/26/22 Progress Note: A&P Assessment and plan (1) Closed subcapital fracture of left femur: Status: Acute Plan Continue pain mgmnt Begin Lovenox for dvt ppx x 6weeks begin PT for left hip CRPP - WBAT Dispo planning-PT, pain mgmnt, rehab placement Time Spent With Patient Time: Total time spent is greater than 50% in coordination of care (as documented) at patient's floor/unit and/or counseling patient: Quality Stroke Does the patient have a stroke diagnosis?: No VTE Prior VTE?: No VTE Risk Level:: Medical - moderate - high VTE Device Contraindication: Treatment Not Indicated VTE Drug Contraindication: Treatment Not Indicated
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
--- NOTE | 2022-07-26 11:39 | HO.PM.IMPN ---
Subjective Subjective Date of Service: 07/26/22 Interval History: cc: fall interval history:hip pain Cardiovascular Cardiovascular: Reports no additional cardiovascular complaints Respiratory Respiratory: Reports no additional respiratory complaints Physical Exam Vital Signs: Vital Signs: Last Vital Signs Temp 98.8 F 07/26/22 11:36 Pulse 69 07/26/22 11:36 Resp 16 07/26/22 11:36 BP 151/70 H 07/26/22 11:36 Pulse Ox 98 07/26/22 11:36 O2 Del Method 07/26/22 11:36 O2 Flow Rate 96 07/25/22 08:00 BMI result Body Mass Index 31.1 General: AO X 3, no acute distress Resp: CTA bilateral, no accessory muscles used CVS: S1,S2,RRR GI: soft, non tender, non distended Neuro: motor grossly intact, alert Psych: appropriate affect, appropriate insight Objective Data Active Medications Acetaminophen (Acetaminophen 325 Mg Tablet) 650 mg PO Q6H PRN PRN Reason: Pain, Mild (Pain Scale 1-3) Last Admin: 07/26/22 05:21 Dose: 650 mg Documented By: RONNY Atorvastatin Calcium (Atorvastatin Calcium 40 Mg Tablet) 40 mg PO DAILY [facility] Last Admin: 07/26/22 08:21 Dose: 40 mg Documented By: TOM Ezetimibe (Ezetimibe 10 Mg Tablet) 10 mg PO DAILY [facility] Last Admin: 07/26/22 08:21 Dose: 10 mg Documented By: TOM Enoxaparin Sodium (Enoxaparin Sodium 40 Mg/0.4 Ml Syringe) 40 mg SUBCUT Q24H [facility] Last Admin: 07/26/22 10:50 Dose: 40 mg Documented By: TOM Hydromorphone HCl (Hydromorphone Hcl 0.5 Mg/0.5 Ml Syringe) 0.25 mg IVPUSH Q5M PRN; Protocol PRN Reason: Pain, Severe (Pain Scale 7-10) Last Admin: 07/24/22 11:47 Dose: 0.25 mg Documented By: TIMUR Cefazolin Sodium/Dextrose (Ancef) 2 gm in 50 mls @ 100 mls/hr IV POSTOP [facility] Last Infusion: 07/24/22 16:57 Dose: 0 mls/hr Documented By: JOHAN Melatonin (Melatonin 3 Mg Tablet) 6 mg PO BEDTIME PRN PRN Reason: Insomnia Last Admin: 07/23/22 21:54 Dose: 6 mg Documented By: YA Morphine Sulfate (Morphine Sulfate 4 Mg/Ml Cartridge) 4 mg IVPUSH Q4H PRN; Protocol PRN Reason: Pain, Severe (Pain Scale 7-10) Last Admin: 07/26/22 10:50 Dose: 4 mg Documented By: TOM Ondansetron HCl (Ondansetron Hcl 4 Mg/2 Ml Vial) 4 mg IVPUSH Q8H PRN PRN Reason: Nausea and Vomiting Last Admin: 07/26/22 10:50 Dose: 4 mg Documented By: TOM Oxycodone HCl (Oxycodone Hcl Immed Release 5 Mg Tablet) 5 mg PO Q4H PRN PRN Reason: Pain, Moderate (Pain Scale 4-6 Last Admin: 07/26/22 08:21 Dose: 5 mg Documented By: TOM Pharmacy Consult (Consult Rx Perform Med Rec) 1 each MISCELLANE ONCE PRN PRN Reason: Consult order Sodium Chloride (0.9 % Sodium Chloride Flush 3 Ml Syringe) 3 ml IVFLUSH QSHIFT [facility] Last Admin: 07/26/22 08:22 Dose: 3 ml Documented By: TOM Labs CBC & Chem 7: 07/26/22 05:31 07/26/22 05:31 Labs: Laboratory Results - last 24 hr 07/26/22 07/26/22 05:31 05:31 MCV 91.6 MCH 29.2 MCHC 31.9 RDW 12.2 Plt Count 240 MPV 9.5 Absolute Nucleated RBC 0.000 Nucleated RBC % (auto) 0.0 Anion Gap 16 Estim Creat Clear Calc 55.3 Estimated GFR > 60 Fasting Glucose 117 H Calcium 9.3 Assessment and Plan (1) Dementia: Status: Acute Plan ?76-year-old female with pertinent history of mixed hyperlipidemia, essential hypertension, dementia who presented to the emergency department for evaluation of left hip pain. Acute Left femoral neck fracture due to mechanical fall pod 2 Mixed hyperlipidemia lipitor dementia - unspecified stable Full code reason for continued hospitalization:awaiting auth Quality Stroke Does the patient have a stroke diagnosis?: No VTE Prior VTE?: No VTE Risk Level:: Medical - moderate - high VTE Device Contraindication: Treatment Not Indicated VTE Drug Contraindication: Treatment Not Indicated
--- NOTE | 2022-07-26 12:25 | MHC.CM.PN ---
DP: PT MEDICALLY CLEARED FOR DC. RN AWARE. DAUGHTER LORENE NOTIFIED. WILL DC TO [facility], [facility] IS STARTING AUTH PROCESS. BLS TRANSPORT BOOKED VIA [facility] ([facility]) FOR 3:30 PM PENDING COMPLETION OF AUTH.
[2022-07-26 12:58] LABS: COVID-19 Test Negative (Negative); IDNOW Serial# 16C4AD1C
--- NOTE | 2022-07-26 19:26 | MHC.CM.PN ---
Received tiget text from Yvonne Mandel, Nursing repair department supervisor regarding patient transfer to [facility] and ambulance transport. [facility] stated they were waiting for authorization, so they did not book a time to transport patient. Per [facility], auth was obtained. Pt Has [facility] medicare. [facility] unable to transport pt until 9pm. CM called [facility] who requested that patient be transported to facility in the morning, as there will not be an intact nurse later tonight. [facility] notified. Can transport patient at 9am or after 2pm. Requested 9am transport. CM called daughterAra and notified her of the delay in transport until the morning. Nursing repair department supervisor notified. shucker on [address] aware.
[2022-07-26] MEDS: Ondansetron ODT 4 MG TAB.RAPDIS TRANSLINGU (23:30)
[2022-07-27] VITALS: BP 142/82; PULSE 89; RESP 17; TEMP 36.6; O2SAT 98
[2022-07-27 04:00] VITALS: BP 150/86; PULSE 87; RESP 18; TEMP 36.2; O2SAT 97
[2022-07-27] MEDS: oxyCODONE HCl Immed Release 5 MG TABLET PO ×2 (04:01→08:06)
[2022-07-27 08:00] VITALS: BP 161/72; PULSE 74; RESP 16; TEMP 36.4; O2SAT 96
[2022-07-27] MEDS: Atorvastatin Calcium 40 MG TABLET PO (08:06)
[2022-07-27] MEDS: Acetaminophen 325 MG TABLET 650 MG PO (08:06)
[2022-07-27] MEDS: Ezetimibe 10 MG TABLET PO (08:06)
[2022-07-27] MEDS: polyethylene glycoL 3350 17 GM POWD.PACK PO (09:00)
== END 2022-07-27 10:26 | disposition skilled nursing facility (03) | DRG 482 ==
LOC: HO.ED 07-23 01:45 → HO.EDOVER 07-23 02:53 → HO.S3 07-23 20:00
PROVIDERS: Orthopaedic Surgery; Admitting Provider Student in an Organized Health Care Education/Training Program; Emergency Provider Emergency Medicine Emergency Medical Services; PCP Internal Medicine; Visit Provider Internal Medicine
PROC: 0QS736Z Reposition Left Upper Femur with Intramedullary Internal Fixation Device, Percutaneous Approach (ICD-10-PCS; principal; 2022-07-24 16:10)
DX: S72.012A Unspecified intracapsular fracture of left femur, initial encounter for closed fracture (principal); E78.5 Hyperlipidemia, unspecified; I10 Essential (primary) hypertension; G30.9 Alzheimer's disease, unspecified; E78.2 Mixed hyperlipidemia; F02.80 Dementia in other diseases classified elsewhere, unspecified severity, without behavioral disturbance, psychotic disturbance, mood disturbance, and anxiety; W03.XXXA Other fall on same level due to collision with another person, initial encounter; Z20.822 Contact with and (suspected) exposure to COVID-19; Z88.0 Allergy status to penicillin; Z79.899 Other long term (current) drug therapy
CPT/HCPCS: 36415; 70450; 71045; 72125; 73502; 80048; 80053; 80307; 81003; 82077; 83690; 85025; 85027; 85610; 85730; 87502; 87635; 93005; 97110; 97116; 97162; 97165; 97530; 99285; C1713; C1769; J0131; J0690; J1100; J1170; J1650; J2270; J2370; J2405; J2795; J3010

== ENCOUNTER 2022-08-06 06:27 | Outpatient (REF) | payer MEDICARE, SELFPAY ==
--- NOTE | ~2022-08-06 | XR_ITS ---
EXAMINATION: XR HIP, LEFT CLINICAL INFORMATION: Left hip pain. COMPARISON: 07/23/2022 TECHNIQUE: AP pelvis and 2 views of the left hip. FINDINGS: AP film of the pelvis does not demonstrate evidence of acute fracture or diastasis. Hip joint spaces are maintained. Facet arthropathy is seen L4-L5 on the right and L5-S1 bilaterally. Views of the left hip again demonstrate [address] for fixation of a left hip subcapital fracture without change in alignment. XR/XR hip LT w PEL1V IMPRESSION: No change in alignment of subcapital left hip fracture status post placement of 3 nails.
== END 2022-08-06 06:28 | disposition home or self-care (01) ==
LOC: HO.HOSX 06:27
PROVIDERS: Visit Provider Physician Assistant
DX: M25.552 Pain in left hip (principal)
CPT/HCPCS: 73502

== ENCOUNTER 2022-09-03 09:04 | Outpatient (REF) | payer MEDICARE, SELFPAY ==
--- NOTE | ~2022-09-03 | XR_ITS ---
EXAMINATION: XR HIP, LEFT CLINICAL INFORMATION: Pain in unspecified hip COMPARISON: 08/06/2022 TECHNIQUE: AP pelvis with AP and frog-leg lateral views of the left hip. FINDINGS: 3 screws transfix the previously seen impacted left femoral neck fracture. Hip joint spaces are maintained. No pelvic fracture seen. XR/XR hip LT w PEL1V IMPRESSION: ORIF left hip.
== END 2022-09-03 09:05 | disposition home or self-care (01) ==
LOC: HO.HOSX 09:04
PROVIDERS: Visit Provider Physician Assistant
DX: S72.002D Fracture of unspecified part of neck of left femur, subsequent encounter for closed fracture with routine healing (principal)
CPT/HCPCS: 73502

== ENCOUNTER 2022-10-15 12:35 | Outpatient (REF) | payer MEDICARE, SELFPAY ==
--- NOTE | ~2022-10-15 | XR_ITS ---
EXAMINATION: XR PELVIS XR HIP, LEFT CLINICAL INFORMATION: Pain left hip COMPARISON: Hip radiograph from 09/03/2022 TECHNIQUE: 4 view of the pelvis single view of the left hip FINDINGS: Redemonstration of 3 partially threaded cannulated screws transfixing the left femoral head and neck. Orthopedic hardware is grossly intact. No acute visible fracture or dislocation. Degenerative arthropathy of the lumbosacral junction. Joint spaces and alignment are maintained. Bowel gas is unremarkable. Soft tissues are unremarkable. XR/XR hip LT 1V IMPRESSION: 1. Redemonstration of 3 partially threaded cannulated screws transfixing the left femoral head and neck. Orthopedic hardware is grossly intact. 2. No acute visible fracture or dislocation.
--- NOTE | ~2022-10-15 | XR_ITS ---
EXAMINATION: XR PELVIS XR HIP, LEFT CLINICAL INFORMATION: Pain left hip COMPARISON: Hip radiograph from 09/03/2022 TECHNIQUE: 4 view of the pelvis single view of the left hip FINDINGS: Redemonstration of 3 partially threaded cannulated screws transfixing the left femoral head and neck. Orthopedic hardware is grossly intact. No acute visible fracture or dislocation. Degenerative arthropathy of the lumbosacral junction. Joint spaces and alignment are maintained. Bowel gas is unremarkable. Soft tissues are unremarkable. XR/XR pelvis 1-2V IMPRESSION: 1. Redemonstration of 3 partially threaded cannulated screws transfixing the left femoral head and neck. Orthopedic hardware is grossly intact. 2. No acute visible fracture or dislocation.
== END 2022-10-15 12:36 | disposition home or self-care (01) ==
LOC: HO.HOSX 12:35
PROVIDERS: Visit Provider Orthopaedic Surgery
DX: S72.002D Fracture of unspecified part of neck of left femur, subsequent encounter for closed fracture with routine healing (principal)
CPT/HCPCS: 72170; 73501; 99212

== ENCOUNTER 2023-11-21 08:37 | Outpatient (REF) | payer MEDICARE, SELFPAY ==
--- NOTE | ~2023-11-21 | XR_ITS ---
EXAMINATION: XR HIP, LEFT CLINICAL INFORMATION: Pain COMPARISON: Previous x-ray September 2022 TECHNIQUE: AP view of the pelvis and shoot through lateral view of the left hip FINDINGS: 3 screws transfixing the old healed left femoral neck fracture. Unchanged. There is question of a lucency and deformity of the medial left femoral head adjacent to the end of the screws. Right hip joint is normal. Bones of the pelvis are normal. There are degenerative changes of the lower lumbar spine. Soft tissues are normal.. XR/XR hip LT min 2V IMPRESSION: ORIF of old healed left femoral neck fracture. Question lucency and deformity of the medial left femoral head adjacent to the end of the screws. This could be better evaluated with CT.
== END 2023-11-21 08:38 | disposition home or self-care (01) ==
LOC: HO.HOSX 08:37
PROVIDERS: Visit Provider Orthopaedic Surgery
DX: S72.002A Fracture of unspecified part of neck of left femur, initial encounter for closed fracture (principal)
CPT/HCPCS: 73502; 99212

== ENCOUNTER 2023-11-21 10:59 | Outpatient (AMB) | payer MEDICARE, SELFPAY ==
--- NOTE | 2023-11-21 11:00 | MHC.OFFVIS ---
Intake Intake Visit Reasons: OV-Left Femoral neck CRPP 07/24/22 Intake Note: Asya is a 76 year old female who presents today for a follow up appointment s/p Left Femoral neck fx 07/24/23. At her last visit she was instructed to continue with at home exercise program and use can if painful ambulation. PRN follow up. Patient reports that she is having continued pain. Her pain is felt all the time and the pain is limiting her activity. Pain is increased with lifting of the leg as well as walking. She has tried and failed OTC pain medication. Accompanied by: Son Allergies Penicillins [PENICILLINS] Allergy (Unknown, Verified 09/03/22 10:36) ITCHING HPI OV-Left Femoral neck CRPP 07/24/22 HPI Details Asya is a 76 year old female who presents today for a follow up appointment s/p Left Femoral neck fx 07/24/23. At her last visit she was instructed to continue with at home exercise program and use can if painful ambulation. PRN follow up. Patient reports that she is having continued pain. Her pain is felt all the time and the pain is limiting her activity. Pain is increased with lifting of the leg as well as walking. She has tried and failed OTC pain medication. [facility] Medical History Dementia Hyperlipemia Hypertension No pertinent past medical history Social History Household Members: Children Housing: House Do you presently have visiting nurse or other home services: No Alcohol intake: never Patient Tobacco Use Status: Never used Tobacco service: No Current occupational status: employed Physical Exam Extrem Other: Antalgic gait. There is pain with impingement testing and sharp pain with external rotation and flexion of the left hip. Most of the pain is anterior and lateral Results Reviewed Results Reviewed: I personally reviewed relevant radiographs. Status post percutaneous pinning right hip with question of femoral head collapse. Assessment & Plan Assessment & Plan (1) Fracture of femoral neck, left: Code(s): S72.002A - Fracture of unspecified part of neck of left femur, initial encounter for closed fracture Plan: 77-year-old now approximately 16 months status post left hip percutaneous pinning. She has continued to have pain which she feels has worsened gradually over the past 6 months. Her pain is mostly lateral hip but also into the anterior thigh. She is difficulty with all daily activities. She is very anxious about surgery and initially we discussed hemiarthroplasty but elected to perform a percutaneous pinning given the mild displacement. At this point I recommend a CT scan to assess the location of the screws and see if there is any intra-articular penetration. I discussed this with her. She will follow up after the CT scan. Orders: Orders XR pelvis 1-2V Today M25.559 - Pain in unspecified hip CT hip LT wo IV con Today S72.002A - Fracture of unspecified part of neck of left femur, initial encounter for closed fracture Coding Level of Care Code Est Pt Level 4 (10283) Diagnoses Fracture of femoral neck, left S72.002A
== END 2023-11-21 12:06 | disposition home or self-care (01) ==
LOC: HO.HOS 10:59
PROVIDERS: PCP Internal Medicine; Visit Provider Orthopaedic Surgery
DX: S72.002A Fracture of unspecified part of neck of left femur, initial encounter for closed fracture (principal)
CPT/HCPCS: 99213

== ENCOUNTER 2023-12-18 07:28 | Outpatient (REF) | payer MEDICARE, SELFPAY ==
--- NOTE | ~2023-12-18 | XR_ITS ---
EXAMINATION: XR PELVIS CLINICAL INFORMATION: Pain COMPARISON: Pelvic radiographs 11/21/2023 TECHNIQUE: AP view of the pelvis. FINDINGS: Again seen are 3 surgical screws fixating the chronic fracture deformity in the left femoral neck. Again noted is lucency and sclerosis in the left femoral head with fragmentation and cortical depression along the superior medial aspect compatible with avascular necrosis. Hip and sacroiliac joint spaces are maintained. Large colonic stool burden. XR/XR pelvis 1-2V IMPRESSION: 1. Again seen are 3 surgical screws fixating the chronic fracture deformity in the left femoral neck. Again noted is lucency and sclerosis in the left femoral head with fragmentation and cortical depression along the superior medial aspect compatible with avascular necrosis. 2. Large colonic stool burden.
--- NOTE | ~2023-12-18 | CT_ITS ---
EXAMINATION: CT HIP WITHOUT CONTRAST, LEFT CLINICAL INFORMATION: Left hip fracture. Pain. COMPARISON: Multiple priors, most recent pelvic and hip radiograph done earlier the same day as well as dated 11/21/2023. TECHNIQUE: Multidetector volumetric imaging was obtained through the left hip without contrast material. Multiplanar reformatted images were submitted in coronal and sagittal planes. This CT examination was performed using dose optimization techniques as appropriate, variously including the following: *Automated exposure control *Adjustment of mA and/or kV according to patient size (this includes techniques or standardized protocols for targeted exams where dose is matched to indication/reason for exam; i.e. extremities or head) *Use of iterative reconstruction technique DLP: 303 mGy-cm FINDINGS: Redemonstration of 3 orthopedic screws within the femoral neck across the healed, chronic femoral neck fracture. No hardware fracture. There is geographic heterogeneous sclerotic density within the femoral head measuring 4.1 x 3.8 cm (AP x ML) and associated with the distal orthopedic screws, consistent with chronic avascular necrosis. Associated fragmentation or cortical depression at the superomedial aspect of the humeral head along the medial aspect of the chronic avascular necrosis measuring up to 2.9 x 2.3 cm (AP by ML). Mild lucency associated with the adjacent orthopedic screws, which may be related to the avascular necrosis. The screws are now seen extending through the cortex by approximately 0.2 cm. Findings appear progressed when compared to prior examinations. No pelvic fracture. No concerning lytic or blastic osseous lesion. No periosteal reaction or cortical erosion. Small left hip joint effusion. No soft tissue mass or fluid collection. Partially visualized sigmoid diverticulosis. The visualized flexor and extensor muscles and tendons are grossly intact; however, evaluation is limited on CT examination. CT/CT hip LT wo IV con IMPRESSION: 1. 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 Findings appear progressed when compared to prior examinations. 2. Redemonstration of 3 orthopedic screws within the femoral neck without hardware fracture. 3. Small left hip joint effusion. 4. Partially visualized sigmoid diverticulosis.
== END 2023-12-18 07:29 | disposition home or self-care (01) ==
LOC: HO.CT 07:28
PROVIDERS: Visit Provider Orthopaedic Surgery
DX: S72.002A Fracture of unspecified part of neck of left femur, initial encounter for closed fracture (principal)
CPT/HCPCS: 72170; 73700

== ENCOUNTER 2024-01-02 12:42 | Outpatient (AMB) | payer MEDICARE, SELFPAY ==
--- NOTE | 2024-01-02 12:44 | A.OFFVIS_ITS ---
Vital Signs 01/02/24 12:45 Height 5 ft 1 in Weight 160 lb BMI 30.2 Intake Visit Reasons: OV - CT scan review of the left hip Intake Note: Asya is a 78 year old female who presents today for review of her Left Hip CT Scan. CT/CT hip LT wo IV con IMPRESSION: 1. 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 Findings appear progressed when compared to prior examinations. 2. Redemonstration of 3 orthopedic screws within the femoral neck without hardware fracture. 3. Small left hip joint effusion. 4. Partially visualized sigmoid diverticulosis. Allergies Penicillins [PENICILLINS] Allergy (Unknown, Verified 01/02/24 12:47) ITCHING HPI HPI OV - CT scan review of the left hip: Details: Asya is a 78 year old female who presents today for review of her Left Hip CT Scan. Asya has been limping around now for months. She describes sharp pain with twisting activities. She is living at home but requiring lots of assistance. PENDING SALE TO [facility] Medical History Dementia Hypertension Hyperlipemia No pertinent past medical history Social History Household Members: Children Housing: House Do you presently have visiting nurse or other home services: No Alcohol intake: never Patient Tobacco Use Status: Never used Tobacco service: No Current occupational status: employed Physical Exam Vital Signs: BMI result Body Mass Index 30.2 Const General: cooperative, healthy appearing, no acute distress, well developed and alert HEENT Head: Yes normal to inspection, Yes normocephalic and Yes atraumatic Mouth: moist mucous membranes Eyes General: appearance normal, both eyes and all related structures EOM: EOMs intact bilaterally Chest Other: no audible wheezing. Resp Other: No audible wheezing Effort & Inspection: normal respiratory effort Cardio Other: Radial pulse palpable with no rythmic abnormalities Back/Spine/Pelvis Cervical Spine: normal cervical lordosis Skin General skin exam: no rashes or lesions noted Neuro General: no focal motor deficits Extrem Other: Antalgic gait. There is pain with impingement testing and sharp pain with external rotation and flexion of the left hip. Most of the pain is anterior and lateral Psych Appearance: grossly normal and well kempt Mental Status: mental status grossly normal Speech and movement: Normal speech and movement present Affect: normal affect Attitude: cooperative Results Reviewed Results Reviewed: CT/CT hip LT wo IV con IMPRESSION: 1. 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 Findings appear progressed when compared to prior examinations. 2. Redemonstration of 3 orthopedic screws within the femoral neck without hardware fracture. 3. Small left hip joint effusion. 4. Partially visualized sigmoid diverticulosis. Assessment & Plan Assessment & Plan (1) Fracture of femoral neck, left: Code(s): S72.002A - Fracture of unspecified part of neck of left femur, initial encounter for closed fracture Category: Medical Plan: This is a 78-year-old woman Roberts is now over a year status post hip pinning with ongoing and worsening persistent left hip pain. She has evidence of avascular necrosis with screw penetration into the joint. I recommend removal of hardware and conversion to hemiarthroplasty. I did discuss the possibility that, if her acetabulum has been severely traumatized by the screws that she would require a total hip replacement. She is here today with her daughter. They both agree with the assessment and plan. I discussed the risks, benefits and alternatives including, but not limited to the risk of fracture, infection, dislocation, need for further surgery as well as medical complications. She expressed understanding and we will proceed forward accordingly. Orders: Orders Complete Blood Count Auto Diff 01/02/24 S72.002A - Fracture of unspecified part of neck of left femur, initial encounter for closed fracture Basic Metabolic Panel 01/02/24 S72.002A - Fracture of unspecified part of neck of left femur, initial encounter for closed fracture ECG 12 lead EKG 01/02/24 S72.002A - Fracture of unspecified part of neck of left femur, initial encounter for closed fracture Coding Level of Care Code Est Pt Level 4 (41677) Diagnoses Fracture of femoral neck, left S72.002A
[2024-01-02 12:45] VITALS: BMI 30.2
== END 2024-01-02 13:06 | disposition home or self-care (01) ==
PROVIDERS: PCP Family Medicine; Visit Provider Orthopaedic Surgery
DX: S72.002A Fracture of unspecified part of neck of left femur, initial encounter for closed fracture (principal); M87.052 Idiopathic aseptic necrosis of left femur
CPT/HCPCS: 99214

== ENCOUNTER 2024-01-02 12:42 | Outpatient (REF) | payer MEDICARE, SELFPAY | END 2024-01-02 12:43 | disposition home or self-care (01) | LOC: HO.HOSX 12:42 | PROVIDERS: PCP Internal Medicine; Visit Provider Orthopaedic Surgery | DX: Z13.89 Encounter for screening for other disorder (principal) | CPT/HCPCS: 99212 ==

== ENCOUNTER 2024-01-02 13:32 | Outpatient (REF) | payer MEDICARE, SELFPAY ==
--- NOTE | ~2024-01-02 | XR_ITS ---
EXAMINATION: XR CHEST CLINICAL INFORMATION: Left femoral neck fracture COMPARISON: Chest x-ray on 07/23/2022 TECHNIQUE: 2 views of the chest were obtained. FINDINGS: vascularity. LUNGS: Lungs are clear. No pneumothorax is seen. BONES: Bony skeleton is intact. XR/XR chest 2V IMPRESSION: Unchanged, No acute cardiopulmonary disease.
[2024-01-02 13:49] LABS: MANUAL DIFF FLAG NO
--- NOTE | 2024-01-02 13:49 | ECG_ITS ---
Test Reason : S72.002A Blood Pressure : / mmHG Vent. Rate : 079 BPM Atrial Rate : 079 BPM P-R Int : 164 ms QRS Dur : 086 ms QT Int : 370 ms P-R-T Axes : 065 053 050 degrees QTc Int : 424 ms Normal sinus rhythm Normal ECG When compared with ECG of 22-JUL-2022 22:54, No significant change was found Referred By: Kyle Floyd Electronically Signed By:CHERRI POE MD
[2024-01-02 14:09] LABS: Basophils Absolute Auto 0.1 X10*3/uL (0.0-0.2); Basophils Percent Auto 0.6 % (0-2); Eosinophils Absolute Auto 0.2 X10*3/uL (0.0-0.4); Eosinophils Percent Auto 1.7 % (0-4); Hematocrit 37.8 % (37.0-47.0); Hemoglobin 12.4 g/dl (12.0-16.0); Imm Gran Abs Auto 0.05 X10*3/uL (0.00-0.03); Imm Gran Pct Auto 0.5 % (0.0-0.4); Lymphocytes Absolute Auto 1.4 X10*3/uL (1.2-4.9); Lymphocytes Percent Auto 13.3 % (20-40); Mean Corpuscular HGB Conc 32.8 g/dl (31.0-35.0); Mean Corpuscular Hemoglobin 29.4 pg (27.0-33.0); Mean Corpuscular Volume 89.6 fL (80.0-98.0); Mean Platelet Volume 9.4 fL (9.4-12.3); Monocytes Absolute Auto 0.8 X10*3/uL (0.1-1.2); Monocytes Percent Auto 7.4 % (2-11); Neutrophils Absolute Auto 8.2 x10*3/uL (2.0-8.3); Neutrophils Percent Auto 76.5 % (45-73); Platelet Count 302 X10*3/uL (160-400); Red Blood Count 4.22 X10*6/uL (4.20-5.50); Red Cell Distribution Width 12.5 % (11.0-16.0); White Blood Count 10.7 X10*3/uL (4.8-10.8)
[2024-01-02 14:46] LABS: Anion Gap 16 (12-20); Blood Urea Nitrogen 28 mg/dL (9-16); Calcium 10.3 mg/dL (8.4-10.2); Carbon Dioxide 28 mmol/L (22-29); Chloride 104 mmol/L (96-108); Estimated Glomerular Filt Rate 51; Glucose Random 96 mg/dL (60-115); Potassium 4.4 mmol/L (3.3-5.1); Sodium 144 mmol/L (135-145)
== END 2024-01-02 13:33 | disposition home or self-care (01) ==
LOC: HO.LAB 13:32
PROVIDERS: Visit Provider Orthopaedic Surgery
DX: M87.9 Osteonecrosis, unspecified (principal); S72.002D Fracture of unspecified part of neck of left femur, subsequent encounter for closed fracture with routine healing
CPT/HCPCS: 36415; 71046; 80048; 85025; 93005; 99212

== ENCOUNTER → 2024-01-02 13:49 | Outpatient (BNV) | payer MEDICARE, SELFPAY | PROVIDERS: Visit Provider Internal Medicine Cardiovascular Disease | DX: I10 Essential (primary) hypertension (principal); E78.5 Hyperlipidemia, unspecified; S72.002A Fracture of unspecified part of neck of left femur, initial encounter for closed fracture | CPT/HCPCS: 93010 ==

== ENCOUNTER → 2024-01-07 11:50 | Outpatient (BNV) | payer MEDICARE, SELFPAY | PROVIDERS: Admitting Provider Orthopaedic Surgery; PCP Internal Medicine; Visit Provider Orthopaedic Surgery | DX: Z47.1 Aftercare following joint replacement surgery (principal); Z96.642 Presence of left artificial hip joint | CPT/HCPCS: 27130; 99024 ==

== ENCOUNTER 2024-01-07 15:08 | Inpatient (IN) | payer MEDICARE, SELFPAY ==
[2024-01-07] VITALS (22 sets, daily range): BP systolic 104–145; BP diastolic 52–75; PULSE 62–84; RESP 14–19; TEMP 36.1–36.4; O2SAT 96–100; BMI 30.7
--- NOTE | ~2024-01-07 | XR_ITS ---
EXAMINATION: XR PELVIS CLINICAL INFORMATION: Left total hip replacement. COMPARISON: 12/18/2023 TECHNIQUE: AP view of the pelvis. FINDINGS: Entire pelvis is not included. Visualized pelvis is intact. Right hip is unremarkable. Left total hip replacement has been performed. Prosthetic components appear appropriate in position. Air and surgical skin christopher identified lateral left hip in the immediate postoperative state.. XR/XR pelvis 1-2V IMPRESSION: Left total hip replacement.
[2024-01-07] MEDS: oxyCODONE HCl ER 10 MG TAB.ER.12H PO ×2 (10:01→19:45)
[2024-01-07] MEDS: Lactated Ringers 1,000 ML 100 ML IVCONT ×2 (10:03→16:23)
--- NOTE | 2024-01-07 10:54 | MHC.SHP ---
Pre-Procedural Eval Section A - 24 Hr Update-Section A only Date of Service: 01/07/24 The patient is an INPATIENT: No Changes since office visit: No Cold of Flu in the past 2 weeks, No New Medical Problems, No Changes in Medication and No Patient answered all questions The patient has been examined within 24 hours of the surgical procedure. The History & Physical has been completed within 30 days and I have reviewed it.: Yes Section B - Complete if H&P > 30 days Chief Complaint: Idiopathic aseptic necrosis of unspecified femur Allergies: Allergies Allergy/AdvReac Type Severity Reaction Status Date / Time Penicillins [PENICILLINS] Allergy Unknown ITCHING Verified 01/02/24 12:47 Plan I have reviewed the history and physical and performed a pertinent physical examination on my patient. No changes have occurred unless specified. Time Spent With Patient Time: Total time managing care of this patient today ____ minutes.
[2024-01-07 11:05] LABS: MRSA Nasal PCR NEGATIVE (Negative); SA Nasal PCR POSITIVE (Negative)
--- NOTE | 2024-01-07 11:55 | HO.ANESPROP2 ---
Documented by User: Geri Arzate NP 01/06/24 09:27 HPI - Anesthesia Eval Consult details Narrative: 78yo F for Left Hip Total Replacement, Removal Orthopedic Hardware on hip (removal of screws) s/p perc pinning L hip fxt 07/2022 with GA-LMA [address] Floyd. No medical optimization or PAT visits. Per 10/2023 routine PCP office visit, chronic conditions stable. Case reviewed with Dr Rivas. OK for eval DOS. PMFSH Active Problems Active Problems: All Active Problems Fracture of femoral neck, left (Acute) Dementia (Acute) Hyperlipemia (Acute) Hypertension (Acute) Fall (Acute) Closed subcapital fracture of left femur (Acute) Closed head injury (Acute) Abdominal pain (Acute) Leukocytosis (Acute) Diverticulitis (Acute) Past Medical History Medical History Dementia Hypertension Hyperlipemia No pertinent past medical history Family History Family history of problems with anesthesia: No Surgical History History of Problems with Anesthesia: No Social History Social History Household Members: Children Housing: House Do you presently have visiting nurse or other home services: No Alcohol intake: never Patient Tobacco Use Status: Never used Tobacco Second Hand Smoke Exposure: No Use of substances other than those prescribed or required for medical reasons: No Are you DNR?: No Advance Directives: No Advance Directives Information Provided: No Advance Directives on File: No service: No Current occupational status: employed Meds Allergies Allergy/AdvReac Type Severity Reaction Status Date / Time Penicillins [PENICILLINS] Allergy Unknown ITCHING Verified 01/02/24 12:47 Home Medications ?Medication ?Instructions ?Recorded ?Confirmed ?Last Taken ?Type acetaminophen 325 mg tablet 325 mg PO BEDTIME PRN Pain 07/23/22 07/23/22 07/22/22 History atorvastatin 40 mg tablet 1 tab PO DAILY 07/23/22 01/07/24 01/06/24 History ezetimibe 10 mg tablet 1 tab PO DAILY 07/23/22 01/07/24 01/06/24 History lisinopril 10 mg tablet 10 mg PO DAILY 11/21/23 01/07/24 01/06/24 History sertraline 50 mg tablet 50 mg PO DAILY 11/21/23 01/07/24 01/06/24 History Exam Pertinent Lab Results Pertinent Lab Results: Laboratory Tests 01/02/24 13:48 WBC 10.7 Hgb 12.4 Hct 37.8 Plt Count 302 D Sodium 144 Potassium 4.4 Chloride 104 Carbon Dioxide 28 BUN 28 H Creatinine 1.04 Narrative Narrative: EKG 12/2023 Vent. Rate : 079 BPM Atrial Rate : 079 BPM P-R Int : 164 ms QRS Dur : 086 ms QT Int : 370 ms P-R-T Axes : 065 053 050 degrees QTc Int : 424 ms Normal sinus rhythm Normal ECG When compared with ECG of 22-JUL-2022 22:54, No significant change was found Assessment and Plan Assessment Anesthesia Assessment: Chart Reviewed Final Anesthetic Review Family History of Problems with Anesthesia: No History of Problems with Anesthesia: No Documented by User: Missy Styles DO 01/07/24 11:55 PMFSH Past Medical History Medical History Dementia Hypertension Hyperlipemia No pertinent past medical history Family History Family history of problems with anesthesia: No Surgical History History of Problems with Anesthesia: No Social History Social History Household Members: Children Housing: House Do you presently have visiting nurse or other home services: No Alcohol intake: never Patient Tobacco Use Status: Never used Tobacco Second Hand Smoke Exposure: No Use of substances other than those prescribed or required for medical reasons: No Are you DNR?: No Advance Directives: No Advance Directives Information Provided: No Advance Directives on File: No service: No Current occupational status: employed Meds Allergies Allergy/AdvReac Type Severity Reaction Status Date / Time Penicillins [PENICILLINS] Allergy Unknown ITCHING Verified 01/02/24 12:47 Home Medications ?Medication ?Instructions ?Recorded ?Confirmed ?Last Taken ?Type acetaminophen 325 mg tablet 325 mg PO BEDTIME PRN Pain 07/23/22 07/23/22 07/22/22 History atorvastatin 40 mg tablet 1 tab PO DAILY 07/23/22 01/07/24 01/06/24 History ezetimibe 10 mg tablet 1 tab PO DAILY 07/23/22 01/07/24 01/06/24 History lisinopril 10 mg tablet 10 mg PO DAILY 11/21/23 01/07/24 01/06/24 History sertraline 50 mg tablet 50 mg PO DAILY 11/21/23 01/07/24 01/06/24 History Exam Exam Date and Time: January 07, 2024 1015 Height,Weight and Vital Signs: Height 5 ft 1 in Weight 73.624 kg Airway Mallampati Class: II TM Dist: >3cm Neck ROM: Full Loose/Missing/Broken Teeth: Yes (patient reports 1 missing tooth) Heart: S1S2 Lungs: CTAB Assessment and Plan Assessment Anesthesia Assessment: Anesthesia Plan Discussed and Chart Reviewed Final Anesthetic Review Family History of Problems with Anesthesia: No History of Problems with Anesthesia: No NPO: Yes ASA Class: II Final Preanesthetic Review: No Changes in Pt Med Stat, Meds/Allgs Chart Reviewed, Consent Obtained/Reviewed and Anes Risks/Benef Reviewed Patient Risk: Low Procedure Risk: Intermediate Anesthetic Plan Anesthetic Plan: GA and Agree w/ Assess. and Plan Disposition: Standard PACU
--- NOTE | 2024-01-07 12:57 | P.BOP_ITS ---
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
[2024-01-07] MEDS: HYDROmorphone HCl 0.5 MG/0.5 ML SYRINGE IVPUSH ×2 (14:10→14:25)
--- NOTE | 2024-01-07 15:24 | P.DS_ITS ---
DS: Providers Provider Date of Service: 01/10/24 Date of admission: 01/07/24 15:08 Primary care physician: Frandy Raymond MD DS: Summary Hospital Course Hospital Course: The patient underwent a successful left total hip arthroplasty, they were transferred to PACU and then to the floor to recover. During their stay, their vitals were stable, afebrile at 97.6. Labs were unremarkable, H/H 11.1/33.6. POD 1 they were started on Lovenox for DVT ppx, they also received Physical Therapy services twice a day. Prior to discharge, their dressing was clean dry and inta ct, and the plan was to be discharged to short term rehab. Time Attestation Total time managing care of this patient today: 30 mintues. Discharge Coordination Time (in mins): 30 Quality: Safe Use of Opioids Does Pt have an Active Cancer Diagnosis on the Problem List?: No Quality: Stroke Does the patient have a stroke diagnosis?: No Physical Exam Vital Signs: Vital Signs: Last Vital Signs Temp 97.3 F 01/07/24 13:20 Pulse 65 01/07/24 15:20 Resp 14 01/07/24 15:20 BP 110/52 L 01/07/24 15:20 Pulse Ox 98 01/07/24 15:20 O2 Del Method Nasal Cannula 01/07/24 15:20 O2 Flow Rate 2 01/07/24 15:20 BMI result Body Mass Index 30.7 Const: General: cooperative, healthy appearing and no acute distress Resp: Effort & Inspection: normal respiratory effort and able to speak in complete sentences Cardio: Rate: regular rate Peripheral pulses: Peripheral pulses 2+ throughout GI: Palpation (GI): Soft to palpation Skin: Lesions: no lesions Rashes: no rashes Extrem: Other: left hip dressing is c/d/i. Able to dorsi/plantar flex. Calf is supple and nontender. Sensation intact. Pedal pulse intact. DS: Data Data Completed and Pending Completed studies during hospitalization [Text1]: Procedures Reposition Left Upper Femur with Intramedullary Internal Fixation Device, Percutaneous Approach (07/23/22) Pending studies at discharge: Pending at discharge 01/07/24 12:20 Surgical [PTH] Routine Labs on day of discharge: Laboratory Results - last 24 hr 01/07/24 01/07/24 09:37 09:56 Nasal Screen MRSA (PCR) NEGATIVE Nasal S. aureus Screen POSITIVE A Nasal MRSA/S.aureus Interp SEE NOTE Blood Type AB Positive Antibody Screen NEGATIVE Discharge Plan Discharge Anticipated Discharge Date/Time: 01/08/24 13:21 Patient Disposition: Home Health Service Discharge Diagnosis: s/p LTHA Referrals: Werner Adler PA-C [Physician Transfer Iron Operator] - 01/20/24 2:00 pm Discharge Medications: New acetaminophen 325 mg Tablet 650 mg PO Q6H PRN (Reason: Pain, Mild (Pain Scale 1-3)) 30 Days Qty: 240 0RF celecoxib 200 mg Capsule 200 mg PO BID 30 Days Qty: 60 0RF docusate sodium 100 mg Capsule 100 mg PO BID 30 Days Qty: 60 0RF enoxaparin 40 mg/0.4 mL Syringe 40 mg subcut Q24H 42 Days Qty: 16.8 0RF oxycodone 5 mg tablet 5 mg PO Q4H PRN (Reason: pain (scale score 4-6)) 7 Days Qty: 42 0RF Rx Instructions: Partial Fill upon patient request. Continued atorvastatin 40 mg tablet 1 tab PO DAILY ezetimibe 10 mg tablet 1 tab PO DAILY alendronate 70 mg tablet 70 mg PO QWEEK famotidine 20 mg tablet 20 mg PO BID PRN (Reason: heartburn) lisinopril 10 mg tablet 10 mg PO DAILY sertraline 50 mg tablet 50 mg PO DAILY Discontinued acetaminophen 325 mg Tablet 325 mg PO BEDTIME PRN (Reason: Pain) Discharge Orders: Discharge Order (Routine); Ordered 01/10/24 Ordered By: Lisette Aguilar Diet: Advance to usual diet Activity on Discharge: Use cane or walker Stand Alone Forms: Patient Portal Discharge page Print Language: Belarusian Care Plan Goals: restore fxn to left hip Health Concerns: none Plan of Treatment: Physical Therapy for total hip arthroplasty: posterior precautions, gait training, ROM, strength Limit stair climbing No showering, no tub bath-keep dressing clean, dry and intact No driving x6 weeks Continue anticoagulant x 6 weeks Follow up with [facility] in 2 weeks Assessment: stable for discharge
--- NOTE | 2024-01-07 15:25 | W.MHC.F2F ---
Service Date Service Date: 01/07/24 Encounter Date of encounter: 01/08/24 Reasons for Services Signs and symptoms assessed: s/p LTHA Pt. is considered homebound due to recent surgery. Unable to drive, poor balance, poor gait mechanics. Reason for physical therapy: home safety and mobility, therapeutic exercises, restore joint function, gait/transfer training, assess need for DME and ADL training Reason for occupational therapy: home safety and mobility, therapeutic exercises, restore joint function, gait/transfer training, assess need for DME and ADL training Homebound: Leaving the home is medically contraindicated at this time without the asist of a device and/or another person due th the listed conditions above and below. Reason homebound: unsteady gait / fall risk, leg weakness, pain with ambulation, pain with transfers, poor balance / fall risk and unable to drive Certification: Based on the above findings, I certify that this patient is confined to the home and needs intermittent long-term care, physical therapy and/or speech therapy, or continues to need occupational therapy. The patient is under my care, and I have initiated the establishment of the plan of care. The patient will be followed by a physician who will periodically review the plan of care. Time Spent With Patient Time: Total time managing care of this patient today ____ minutes.
[2024-01-07] MEDS: 0.9 % Sodium Chloride Flush 3 ML SYRINGE IVFLUSH (16:22)
--- NOTE | 2024-01-07 16:26 | P.CONHOSP_ITS ---
History of Present Illness Data of Consult Service Date: 01/07/24 Requesting physician: Kyle Floyd Primary Care Provider: Frandy Raymond MD [facility] Reason for consult: medical management 78-year-old female with history of hyperlipidemia, hypertension, mood disorder, and dementia admitted to Orthopedic surgery for management of osteoarthritis of the left femur fx with consult placed hospitalist service for medical management. The patient has no complaints and does not appear to have any acute medical issues. Denies any alcohol use, cigarette smoking, or drug use. Vital signs are stable at time of consult. Review of Systems Review of Systems: General: No fevers, malaise, unintentional weight loss HEENT: No blurred vision, diplopia. No sore throat, nasal congestion, rhinorrhea, sinus pain, ear pain Cardiovascular: No chest pain, palpitations, or leg edema Respiratory: No shortness of breath, wheezing, cough GI: No abdominal pain, nausea, vomiting, diarrhea, constipation, melena, hematochezia : No dysuria, hematuria, increased urinary frequency, decreased urinary output MSK: No myalgia, back pain Neuro: No headaches, weakness, paresthesias Skin: No rashes or lesions PMFSH Medical History Dementia Hypertension Hyperlipemia No pertinent past medical history Social History Household Members: Children Housing: House Do you presently have visiting nurse or other home services: No Alcohol intake: never Patient Tobacco Use Status: Never used Tobacco Second Hand Smoke Exposure: No Use of substances other than those prescribed or required for medical reasons: No Are you DNR?: No Advance Directives: No Advance Directives Information Provided: No Advance Directives on File: No service: No Current occupational status: employed Meds Allergies Allergy/AdvReac Type Severity Reaction Status Date / Time Penicillins [PENICILLINS] Allergy Unknown ITCHING Verified 01/02/24 12:47 Active Medications: Current Medications Acetaminophen (Acetaminophen 325 Mg Tablet) 650 mg PO Q6H PRN PRN Reason: Pain, Mild (Pain Scale 1-3) Celecoxib (Celecoxib 200 Mg Capsule) 200 mg PO BID ELKIN Docusate Sodium (Docusate Sodium 100 Mg Capsule) 100 mg PO BID ELKIN Hydromorphone HCl (Hydromorphone Hcl 0.5 Mg/0.5 Ml Syringe) 0.25 mg IVPUSH Q4H PRN; Protocol PRN Reason: Pain, Severe (Pain Scale 7-10) Lactated Ringer's (Lr) 1,000 mls @ 100 mls/hr IVCONT .Q10H [facility] Last Admin: 01/07/24 16:23 Dose: 100 mls/hr Cefazolin Sodium/Dextrose (Ancef) 2 gm in 50 mls @ 100 mls/hr IV POSTOP ONE Stop: 01/07/24 19:29 Ondansetron HCl (Ondansetron Hcl 4 Mg/2 Ml Vial) 4 mg IVPUSH Q8H PRN PRN Reason: Nausea and Vomiting Oxycodone HCl (Oxycodone Hcl Immed Release 5 Mg Tablet) 5 mg PO Q4H PRN PRN Reason: Pain, Moderate(Pain Scale 4-6) Oxycodone HCl (Oxycodone Hcl Er 10 Mg Tab.Er.12h) 10 mg PO BID [facility] Sertraline HCl (Sertraline Hcl 50 Mg Tablet) 50 mg PO DAILY [facility] Sodium Chloride (0.9 % Sodium Chloride Flush 3 Ml Syringe) 3 ml IVFLUSH QSHIFT [facility] Last Admin: 01/07/24 16:22 Dose: 3 ml Home Medications ?Medication ?Instructions ?Recorded ?Confirmed ?Last Taken ?Type acetaminophen 325 mg tablet 325 mg PO BEDTIME PRN Pain 07/23/22 07/23/22 07/22/22 History atorvastatin 40 mg tablet 1 tab PO DAILY 07/23/22 01/07/24 01/06/24 History ezetimibe 10 mg tablet 1 tab PO DAILY 07/23/22 01/07/24 01/06/24 History lisinopril 10 mg tablet 10 mg PO DAILY 11/21/23 01/07/24 01/06/24 History sertraline 50 mg tablet 50 mg PO DAILY 11/21/23 01/07/24 01/06/24 History alendronate 70 mg tablet 70 mg PO QWEEK 01/07/24 Unknown History famotidine 20 mg tablet 20 mg PO BID PRN heartburn 01/07/24 Unknown History Physical Exam Vital Signs and Narrative: Vital Signs: Last Vital Signs Temp 97.5 F 01/07/24 16:06 Pulse 75 01/07/24 16:06 Resp 16 01/07/24 16:06 BP 129/63 01/07/24 16:06 Pulse Ox 98 01/07/24 16:06 O2 Del Method Room Air 01/07/24 16:06 O2 Flow Rate 2 01/07/24 15:57 BMI result Body Mass Index 30.7 Constitutional - Awake and Alert, No apparent distress Eyes - PERRLA, EOMI Cardiovascular - S1S2, RRR, No edema Respiratory - Normal lung expansion, Normal respiratory effort, No respiratory distress, CTA bilaterally Extremities - no calf tenderness bilaterally, no swelling Skin - Warm/Dry Neurological - Alert & oriented x3 Psychological - Appropriate affect Results Labs Labs: Laboratory Results - last 24 hr 01/07/24 01/07/24 09:37 09:56 Nasal Screen MRSA (PCR) NEGATIVE Nasal S. aureus Screen POSITIVE A Nasal MRSA/S.aureus Interp SEE NOTE Blood Type AB Positive Antibody Screen NEGATIVE Imaging Radiologist's Impressions: Impressions Pelvis X-Ray 01/07/24 14:00 IMPRESSION: Left total hip replacement. Assessment and Plan (1) Fracture of femoral neck, left: Status: Acute Plan 78-year-old female with history of hyperlipidemia, hypertension, mood disorder, and dementia admitted to Orthopedic surgery for management left femur fracture with consult placed hospitalist service for medical management. #Left femur fx -plan per ortho surgery #HTN -resume lisinopril on dc or if hypertensive #HLD -statin #Dementia with mood disturbance -lucid on exam, oriented x3 -continue mood stabilizers Thank you for allowing me to participate in this consult. Signing off at this time. Please do not hesitate to call for further questions or for any acute medical issues
--- NOTE | 2024-01-07 16:39 | PC.NURSE ---
Patient OOB to commode with 2 assist and walker,unable to urinate,bladder scanned for 343 ml
--- NOTE | 2024-01-07 17:48 | PHA.MEDREC ---
Pharmacy Consult ? Medication Reconciliation Pharmacy has reviewed the medication reconciliation. Saw no claims for atorvastatin, went to speak to patient who confirmed they are on it.
[2024-01-07] MEDS: oxyCODONE HCl Immed Release 5 MG TABLET PO ×2 (17:52→22:19)
[2024-01-07] MEDS: ceFAZolin Sodium/Dextrose,Iso 2 GM/50 ML PIGGYBACK IV (18:38)
[2024-01-07] MEDS: Celecoxib 200 MG CAPSULE PO (19:44)
[2024-01-07] MEDS: Docusate Sodium 100 MG CAPSULE PO (19:45)
[2024-01-07] MEDS: Acetaminophen 325 MG TABLET 650 MG PO (19:45)
--- NOTE | 2024-01-07 23:01 | PC.NURSE ---
patient voided 100 ml,bladder scanned by TUBE WINDER Debbie for 93 ml
[2024-01-08] VITALS (9 sets, daily range): BP systolic 108–142; BP diastolic 55–65; PULSE 73–97; RESP 13–20; TEMP 36.1–36.3; O2SAT 93–100
[2024-01-08] MEDS: HYDROmorphone HCl 0.5 MG/0.5 ML SYRINGE 0.25 MG IVPUSH (00:11)
[2024-01-08] MEDS: Lactated Ringers 1,000 ML 100 ML IVCONT ×2 (02:28→20:40)
[2024-01-08] MEDS: oxyCODONE HCl Immed Release 5 MG TABLET PO ×5 (05:58→17:12)
--- NOTE | 2024-01-08 06:21 | PC.NURSE ---
5403- assist of one oob to commode, pt is POD #1 and WBAT, able to void 175ml dejuan urine and pvr [id number]. pt denies bladder pain or pressure. Continue to monitor and fluids encouraged.
[2024-01-08 06:52] LABS: MANUAL DIFF FLAG NO
[2024-01-08 07:01] LABS: Basophils Percent Auto 0.2 % (0-2); Eosinophils Percent Auto 0.2 % (0-4); Hematocrit 30.9 % (37.0-47.0); Hemoglobin 10.1 g/dl (12.0-16.0); Imm Gran Abs Auto 0.09 X10*3/uL (0.00-0.03); Imm Gran Pct Auto 0.5 % (0.0-0.4); Lymphocytes Absolute Auto 1.1 X10*3/uL (1.2-4.9); Mean Corpuscular HGB Conc 32.7 g/dl (31.0-35.0); Mean Corpuscular Hemoglobin 29.6 pg (27.0-33.0); Mean Corpuscular Volume 90.6 fL (80.0-98.0); Mean Platelet Volume 9.8 fL (9.4-12.3); Monocytes Absolute Auto 1.4 X10*3/uL (0.1-1.2); Monocytes Percent Auto 8.1 % (2-11); Neutrophils Absolute Auto 15.2 x10*3/uL (2.0-8.3); Platelet Count 247 X10*3/uL (160-400); Red Blood Count 3.41 X10*6/uL (4.20-5.50); Red Cell Distribution Width 12.6 % (11.0-16.0); White Blood Count 17.9 X10*3/uL (4.8-10.8)
[2024-01-08 07:13] LABS: Anion Gap 16 (12-20); Blood Urea Nitrogen 20 mg/dL (9-16); Calcium 9.2 mg/dL (8.4-10.2); Carbon Dioxide 24 mmol/L (22-29); Chloride 106 mmol/L (96-108); Creatinine Clr Calc Pharmacy 48.3; Estimated Glomerular Filt Rate > 60; Glucose Fasting 122 mg/dL (60-99); Potassium 5.1 mmol/L (3.3-5.1); Sodium 141 mmol/L (135-145)
[2024-01-08] MEDS: Celecoxib 200 MG CAPSULE PO ×2 (07:15→20:00)
[2024-01-08] MEDS: oxyCODONE HCl ER 10 MG TAB.ER.12H PO ×2 (07:15→19:59)
[2024-01-08] MEDS: Docusate Sodium 100 MG CAPSULE PO ×2 (07:15→20:00)
[2024-01-08] MEDS: Sertraline HCL 50 MG TABLET PO (07:16)
--- NOTE | 2024-01-08 07:32 | P.PNOP_ITS ---
Subjective Subjective Date of Service: 01/08/24 Interval history: POD1 s/p removal hardware to left DIYA Patient is resting in bed comfortably No overnight events Pain is managed No additional complaints Physical Exam Vital Signs: Vital Signs: Last Vital Signs Temp 96.9 F 01/08/24 03:22 Pulse 73 01/08/24 03:22 Resp 18 01/08/24 06:58 BP 115/55 L 01/08/24 03:22 Pulse Ox 96 01/08/24 03:22 O2 Del Method Nasal Cannula 01/08/24 03:22 O2 Flow Rate 2 01/08/24 03:22 BMI result Body Mass Index 30.7 Const: General: cooperative, healthy appearing and no acute distress Resp: Effort & Inspection: normal respiratory effort and able to speak in com plete sentences Cardio: Rate: regular rate Peripheral pulses: Peripheral pulses 2+ throughout GI: Palpation (GI): Soft to palpation Skin: Lesions: no lesions Rashes: no rashes Extrem: Other: left hip dressing is c/d/i. Able to dorsi/plantar flex. Calf is supple and nontender. Sensation intact. Pedal pulse intact. Procedures Date of Service Date of Service: 01/08/24 Progress Note: A&P Assessment and plan (1) Status post total replacement of left hip: Status: Acute Assessment and Plan: Continue pain mgmnt Begin ASA for dvt ppx begin PT/OT for LTHA - WBAT Dispo planning-Pending PT eval, pain mgmnt, (2) S/P hardware removal: Status: Acute Time Spent With Patient Time: Total time managing care of this patient today ____ minutes. Quality Stroke Does the patient have a stroke diagnosis?: No VTE Prior VTE?: No VTE Risk Level:: Medical - moderate - high VTE Device Contraindication: N/A - Device Ordered VTE Drug Contraindication: N/A - Med Ordered
--- NOTE | 2024-01-08 08:25 | P.OP_ITS ---
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 All bony prominences were well padded and the limb was prepped and draped in standard sterile fashion. A time-out was called to identify proper site procedure proper surgeon IV antibiotics and 1 g of transaxemic acid were administered. I began by making a curvilinear incision over the posterolateral aspect of the greater trochanter. Dissection was taken down to the tensor fascia which was incised in line with the incision and a Charnley retractor was placed. Cautery was used to maintain hemostasis. The hip was internally rotated and the external rotators were identified. The vessels were cauterized and a full-thickness capsular/external rotator layer was deve loped starting just proximal to the piriformis. This layer was tagged and a dull Hohmann retractor was placed underneath the neck in the hip was dislocated. One of the hip screws had penetrated the femoral cortex and there was focal wear in the corresponding acetabulum. Once the head was dislocated an incision was made over the prior perutaneous pin incision and extended proximally and distally u ntil I was able to visualize the hip screws. These wee partially obscured by bone and a guidwire was used then a small rongeur then the screws were removed without incident. A neck cut was then made 1 cm proximal to the lesser trochanter and the head and neck were removed and measured 44mm on the back table. I then removed the labrum and cauterized the fovea. I started with a 42 reamer and medialized to the inner table. I sequentially reamed up to a size 46 and impacted a 46mm cup at 45 degrees of inclination and 25 degrees of version. I then placed a MDM liner and turned my attention to the femur. I identified the piriformis insertion and used this as a starting point for my carolynn cutter. The medius tendon was protected with a Hibs retractor. A Charnley awl was inserted in the canal and a curved curette used to remove the lateral bone. I irrigated copiously. I then sequentially broached in the patient's natural version to a size 5 and placed my trial implants. I used a #2/127/+0 based on my pre-operative template. Using a trail head I took the hip through range of motion. I was satisfied with the stability. I placed my final femoral implant and again took the hip through range of motion and was satisfied with the stability and length. The final +0/36 MDM implant was impacted in place and the hip reduced. I then irrigated copiously placed 1 g of local transaxemic acid. I performed a capsular closure with 2.0 fiberwire, Laureen's fascia with 0 Vicryl, subcuticular with 2-0 Vicryl and the skin with christopher. Patient was placed into a sterile dressing. Patient was extubated brought to the recovery room in stable condition. There were no known complications.
--- NOTE | 2024-01-08 09:53 | MHC.CM.PN ---
pt from home where she lives with her son and dil.pt to go home with vna son to transport
--- NOTE | 2024-01-08 10:27 | MHC.CM.PN ---
pt from home where she lives with her son and dil ot recommending str pt agreeable referrals made
--- NOTE | 2024-01-08 11:36 | HO.POSTANES ---
Post Anesthesia Evaluation Post Anesthesia Evaluation Date of Service: 01/07/24 Vital Signs: Vital Signs Temp Pulse Resp BP Pulse Ox O2 Del Method O2 Flow Rate 01/08/24 09:59 80 97 01/08/24 07:31 97.2 F 80 16 127/61 100 Nasal Cannula 2 01/08/24 06:58 18 01/08/24 03:22 96.9 F 73 18 115/55 L 96 Nasal Cannula 2 01/08/24 00:41 18 01/08/24 00:11 20 Anesthesia: General Endotracheal-GETA Mental Status: Awake Pain Control: Satisfactory Nausea/Vomiting: None Hydration: Adequate Anesthesia-Related Issues: No Anes. Related Issues
[2024-01-08] MEDS: Enoxaparin Sodium 40 MG/0.4 ML SYRINGE SUBCUT (13:07)
[2024-01-08] MEDS: Acetaminophen 325 MG TABLET 650 MG PO ×2 (14:29→20:39)
[2024-01-08] MEDS: ondansetron HCL 4 MG/2 ML VIAL IVPUSH (19:57)
[2024-01-09] VITALS (13 sets, daily range): BP systolic 117–153; BP diastolic 58–69; PULSE 70–100; RESP 12–18; TEMP 36–37.1; O2SAT 93–97
[2024-01-09] MEDS: oxyCODONE HCl Immed Release 5 MG TABLET PO ×3 (00:51→23:15)
[2024-01-09 06:56] LABS: MANUAL DIFF FLAG NO
[2024-01-09 07:03] LABS: Basophils Percent Auto 0.3 % (0-2); Eosinophils Absolute Auto 0.2 X10*3/uL (0.0-0.4); Eosinophils Percent Auto 1.3 % (0-4); Hematocrit 25.8 % (37.0-47.0); Hemoglobin 8.2 g/dl (12.0-16.0); Imm Gran Abs Auto 0.07 X10*3/uL (0.00-0.03); Imm Gran Pct Auto 0.6 % (0.0-0.4); Lymphocytes Absolute Auto 1.5 X10*3/uL (1.2-4.9); Lymphocytes Percent Auto 12.9 % (20-40); Mean Corpuscular HGB Conc 31.8 g/dl (31.0-35.0); Mean Corpuscular Hemoglobin 29.6 pg (27.0-33.0); Mean Corpuscular Volume 93.1 fL (80.0-98.0); Monocytes Absolute Auto 0.9 X10*3/uL (0.1-1.2); Monocytes Percent Auto 7.4 % (2-11); Neutrophils Absolute Auto 9.3 x10*3/uL (2.0-8.3); Neutrophils Percent Auto 77.5 % (45-73); Red Blood Count 2.77 X10*6/uL (4.20-5.50); Red Cell Distribution Width 12.8 % (11.0-16.0)
[2024-01-09 07:20] LABS: Anion Gap 12 (12-20); Blood Urea Nitrogen 22 mg/dL (9-16); Carbon Dioxide 25 mmol/L (22-29); Chloride 110 mmol/L (96-108); Creatinine Clr Calc Pharmacy 53.1; Estimated Glomerular Filt Rate > 60; Glucose Fasting 112 mg/dL (60-99); Potassium 4.4 mmol/L (3.3-5.1); Sodium 143 mmol/L (135-145)
[2024-01-09 07:48] LABS: Platelet Count 171 X10*3/uL (160-400)
[2024-01-09] MEDS: Celecoxib 200 MG CAPSULE PO ×2 (08:25→18:59)
[2024-01-09] MEDS: Docusate Sodium 100 MG CAPSULE PO ×2 (08:25→18:59)
[2024-01-09] MEDS: Sertraline HCL 50 MG TABLET PO (08:25)
[2024-01-09] MEDS: oxyCODONE HCl ER 10 MG TAB.ER.12H PO ×2 (08:26→18:58)
[2024-01-09] MEDS: HYDROmorphone HCl 0.5 MG/0.5 ML SYRINGE 0.25 MG IVPUSH (08:27)
[2024-01-09] MEDS: Lactated Ringers 1,000 ML 100 ML IVCONT (08:36)
[2024-01-09] MEDS: 0.9 % Sodium Chloride Flush 3 ML SYRINGE IVFLUSH ×2 (08:36→23:23)
--- NOTE | 2024-01-09 09:30 | P.PNOP_ITS ---
Subjective Subjective Date of Service: 01/09/24 Interval history: POD2 s/p removal hardware to left DIYA Patient is resting in bed comfortably No overnight events Pain is managed No additional complaints Physical Exam Vital Signs: Vital Signs: Last Vital Signs Temp 98.8 F 01/09/24 08:00 Pulse 86 01/09/24 08:00 Resp 18 01/09/24 08:00 BP 117/62 01/09/24 08:00 Pulse Ox 96 01/09/24 08:00 O2 Del Method Room Air 01/09/24 08:00 O2 Flow Rate 2 01/08/24 07:31 BMI result Body Mass Index 30.7 Const: General: cooperative, healthy appearing and no acute distress Resp: Effort & Inspection: normal respiratory effort and able to speak in com plete sentences Cardio: Rate: regular rate Peripheral pulses: Peripheral pulses 2+ throughout GI: Palpation (GI): Soft to palpation Skin: Lesions: no lesions Rashes: no rashes Extrem: Other: left hip dressing is c/d/i. Able to dorsi/plantar flex. Calf is supple and nontender. Sensation intact. Pedal pulse intact. Procedures Date of Service Date of Service: 01/09/24 Progress Note: A&P Assessment and plan (1) Status post total replacement of left hip: Status: Acute Assessment and Plan: Continue pain mgmnt Begin ASA for dvt ppx begin PT/OT for LTHA - WBAT Dispo planning-PT, pain mgmnt Patient would benefit from additoinal therapy sessions for safe d/c Monitor H/H - 2 units of pRBC's ordered (2) S/P hardware removal: Status: Acute Time Spent With Patient Time: Total time managing care of this patient today ____ minutes. Quality Stroke Does the patient have a stroke diagnosis?: No VTE Prior VTE?: No VTE Risk Level:: Medical - moderate - high VTE Device Contraindication: N/A - Device Ordered VTE Drug Contraindication: N/A - Med Ordered
[2024-01-09] MEDS: Enoxaparin Sodium 40 MG/0.4 ML SYRINGE SUBCUT (11:19)
--- NOTE | 2024-01-09 14:35 | MHC.CM.PN ---
CM MET WITH PT REGARDING SNF CHOICES. PT/FAMILY HAVE CHOSEN [facility] WHO EXTENDS A BED OFFER PENDING AUTH. CM WILL ALTA NUE TO FOLLOW FOR ANY CHANGE TO PLAN
[2024-01-10 03:29] VITALS: BP 129/69; PULSE 87; RESP 18; TEMP 36.4; O2SAT 93
--- NOTE | 2024-01-10 04:57 | PC.NURSE ---
0415- PATIENT OOB TO COMMODE, ABLE TO VOID 150ML, HOWEVER, FEELING BLADDER PRESSURE. NOTED FEW HOURS PRIOR VOIDED 100ML AND PVR 291ML, AT THAT TIME WAITED TO SEE IF WOULD EMPTY NEXT ATTEMPT AND NOT FEELING DISCOMFORT. WITH 0415 VOID, PVR AMOUNT WAS 521ML, THEREFORE, ST CATH WAS DONE, PT MACKENZIE WELL, AND 575ML YELLOW URINE OBTAINED. PT FELT RELIEF. WILL CONTINUE TO MONITOR AND DTV BETWEEN [phone].
[2024-01-10 06:54] LABS: MANUAL DIFF FLAG NO
[2024-01-10 07:07] LABS: Basophils Absolute Auto 0.1 X10*3/uL (0.0-0.2); Basophils Percent Auto 0.5 % (0-2); Eosinophils Absolute Auto 0.4 X10*3/uL (0.0-0.4); Eosinophils Percent Auto 3.3 % (0-4); Hematocrit 33.6 % (37.0-47.0); Hemoglobin 11.1 g/dl (12.0-16.0); Imm Gran Abs Auto 0.09 X10*3/uL (0.00-0.03); Imm Gran Pct Auto 0.7 % (0.0-0.4); Lymphocytes Absolute Auto 1.9 X10*3/uL (1.2-4.9); Mean Corpuscular Hemoglobin 29.4 pg (27.0-33.0); Mean Corpuscular Volume 89.1 fL (80.0-98.0); Mean Platelet Volume 10.1 fL (9.4-12.3); Monocytes Absolute Auto 0.9 X10*3/uL (0.1-1.2); Monocytes Percent Auto 6.7 % (2-11); Neutrophils Absolute Auto 9.5 x10*3/uL (2.0-8.3); Neutrophils Percent Auto 73.8 % (45-73); Platelet Count 189 X10*3/uL (160-400); Red Blood Count 3.77 X10*6/uL (4.20-5.50); Red Cell Distribution Width 13.7 % (11.0-16.0); White Blood Count 12.9 X10*3/uL (4.8-10.8)
[2024-01-10 07:21] VITALS: BP 192/86; PULSE 80; RESP 16; TEMP 36.2; O2SAT 94
[2024-01-10] MEDS: Celecoxib 200 MG CAPSULE PO (07:21)
[2024-01-10] MEDS: oxyCODONE HCl Immed Release 5 MG TABLET PO ×2 (07:21→12:56)
[2024-01-10] MEDS: Sertraline HCL 50 MG TABLET PO (07:22)
[2024-01-10] MEDS: 0.9 % Sodium Chloride Flush 3 ML SYRINGE IVFLUSH ×2 (07:22→17:41)
[2024-01-10] MEDS: Docusate Sodium 100 MG CAPSULE PO (07:22)
[2024-01-10] MEDS: oxyCODONE HCl ER 10 MG TAB.ER.12H PO (07:22)
[2024-01-10 07:23] LABS: Anion Gap 10 (12-20); Blood Urea Nitrogen 20 mg/dL (9-16); Calcium 9.3 mg/dL (8.4-10.2); Carbon Dioxide 28 mmol/L (22-29); Chloride 106 mmol/L (96-108); Creatinine Clr Calc Pharmacy 59.1; Estimated Glomerular Filt Rate > 60; Glucose Fasting 125 mg/dL (60-99); Potassium 4.2 mmol/L (3.3-5.1); Sodium 140 mmol/L (135-145)
[2024-01-10 08:44] VITALS: BP 192/86; PULSE 80; O2SAT 94
--- NOTE | 2024-01-10 10:51 | MHC.CM.PN ---
Addendum entered by Xochitl Broussard 01/10/24 16:06: [facility] has received insurance authorization for STR. Transport has been booked with [facility] Preferred provider [facility]. 4pm is the scheduled sheepskin pickler time. Original Note: IMM 01/10/24 S/P L THR. Pt rec STR. A bed offer has been accepted from [facility]. They have started the insurance authorization process. DP to [facility] pending auth for STR via BLS. Patients dtr notified and in agreement with DP. A message was received via CM from Pts son, Jimmy. The call was returned to the # provided. There was no answer or ability to leave a VM. Sent Mabie text to COMPUTER BOOKKEEPER: Pts dtr is aware that the patient will discharge to [facility] once insurance auth has been received.
[2024-01-10 12:00] VITALS: BP 144/67; PULSE 84; RESP 16; TEMP 36.2; O2SAT 92
[2024-01-10] MEDS: Enoxaparin Sodium 40 MG/0.4 ML SYRINGE SUBCUT (12:59)
[2024-01-10 14:32] VITALS: BP 144/67; PULSE 84; O2SAT 92
--- NOTE | 2024-01-10 15:31 | PC.NURSE ---
Pt bladder scanned for PVR 335. Straight cathed for 600cc @1330. DTV @1930.
[2024-01-10 16:00] VITALS: BP 191/91; PULSE 81; RESP 18; TEMP 36.1; O2SAT 93
--- NOTE | 2024-01-10 18:32 | PC.NURSE ---
RN attempted to call nurse to nurse report to [facility] but unable ,nobody nut picker the phone
== END 2024-01-10 18:45 | disposition skilled nursing facility (03) | DRG 522 ==
LOC: HO.SSSA 15:22 → HO.S3 15:46
PROVIDERS: Nurse Practitioner; Physician Assistant; Admitting Provider Orthopaedic Surgery; PCP Internal Medicine; Visit Provider Orthopaedic Surgery
PROC: 0SRB0JA Replacement of Left Hip Joint with Synthetic Substitute, Uncemented, Open Approach (ICD-10-PCS; CPT 27130; principal; 2024-01-07 11:50)
PROC: 0SRB0JA Replacement of Left Hip Joint with Synthetic Substitute, Uncemented, Open Approach (ICD-10-PCS; 2024-01-07 11:50)
DX: S72.002P Fracture of unspecified part of neck of left femur, subsequent encounter for closed fracture with malunion (principal); M87.052 Idiopathic aseptic necrosis of left femur; I10 Essential (primary) hypertension; E78.5 Hyperlipidemia, unspecified; F03.90 Unspecified dementia, unspecified severity, without behavioral disturbance, psychotic disturbance, mood disturbance, and anxiety; Z79.899 Other long term (current) drug therapy
CPT/HCPCS: 36415; 72170; 80048; 85025; 86850; 86900; 86901; 86923; 87640; 87641; 88305; 88311; 97116; 97162; 97166; 97530; 97535; C1713; C1776; J0131; J0690; J1100; J1170; J1650; J2371; J2405; J2704; J2795; J3010; J7120; P9016

== ENCOUNTER → 2024-01-07 15:08 | Outpatient (BNV) | payer MEDICARE, SELFPAY | PROVIDERS: Admitting Provider Orthopaedic Surgery; PCP Internal Medicine; Visit Provider Physician Assistant | DX: S72.002A Fracture of unspecified part of neck of left femur, initial encounter for closed fracture (principal) | CPT/HCPCS: 99222 ==

== ENCOUNTER 2024-01-14 05:55 | Outpatient (REF) | payer MEDICARE, SELFPAY ==
[2024-01-14 05:58] LABS: MANUAL DIFF FLAG NO
[2024-01-14 06:39] LABS: Basophils Absolute Auto 0.1 X10*3/uL (0.0-0.2); Basophils Percent Auto 0.4 % (0-2); Eosinophils Absolute Auto 0.4 X10*3/uL (0.0-0.4); Eosinophils Percent Auto 3.7 % (0-4); Hematocrit 35.7 % (37.0-47.0); Hemoglobin 11.5 g/dl (12.0-16.0); Imm Gran Abs Auto 0.09 X10*3/uL (0.00-0.03); Imm Gran Pct Auto 0.8 % (0.0-0.4); Lymphocytes Absolute Auto 2.4 X10*3/uL (1.2-4.9); Lymphocytes Percent Auto 21.6 % (20-40); Mean Corpuscular HGB Conc 32.2 g/dl (31.0-35.0); Mean Corpuscular Volume 89.9 fL (80.0-98.0); Mean Platelet Volume 9.6 fL (9.4-12.3); Monocytes Absolute Auto 0.9 X10*3/uL (0.1-1.2); Monocytes Percent Auto 7.8 % (2-11); Neutrophils Absolute Auto 7.4 x10*3/uL (2.0-8.3); Neutrophils Percent Auto 65.7 % (45-73); Platelet Count 254 X10*3/uL (160-400); Red Blood Count 3.97 X10*6/uL (4.20-5.50); Red Cell Distribution Width 13.1 % (11.0-16.0); White Blood Count 11.2 X10*3/uL (4.8-10.8)
[2024-01-14 07:19] LABS: Alanine Aminotransferase 20 U/L (0-31); Albumin Level 3.4 g/dL (3.5-5.0); Alkaline Phosphatase 73 U/L (39-117); Anion Gap 14 (12-20); Aspartate Amino Transferase 24 U/L (5-31); Bilirubin Total 0.5 mg/dL (0.0-1.0); Blood Urea Nitrogen 20 mg/dL (9-16); Calcium 8.9 mg/dL (8.4-10.2); Carbon Dioxide 24 mmol/L (22-29); Chloride 107 mmol/L (96-108); Estimated Glomerular Filt Rate > 60; Glucose Random 89 mg/dL (60-115); Sodium 140 mmol/L (135-145); Total Protein 6.6 g/dL (6.5-8.0)
== END 2024-01-14 05:56 | disposition home or self-care (01) ==
LOC: HO.MMNH2L 05:55
PROVIDERS: Visit Provider Family Medicine
DX: S72.002A Fracture of unspecified part of neck of left femur, initial encounter for closed fracture (principal); X58.XXXA Exposure to other specified factors, initial encounter; Y93.9 Activity, unspecified; Y92.9 Unspecified place or not applicable; Y99.9 Unspecified external cause status
CPT/HCPCS: 36415; 80053; 85025

== ENCOUNTER 2024-01-20 06:01 | Outpatient (REF) | payer MEDICARE, SELFPAY ==
[2024-01-20 05:49] LABS: MANUAL DIFF FLAG NO
[2024-01-20 07:01] LABS: Basophils Absolute Auto 0.1 X10*3/uL (0.0-0.2); Basophils Percent Auto 0.5 % (0-2); Eosinophils Absolute Auto 0.4 X10*3/uL (0.0-0.4); Eosinophils Percent Auto 2.8 % (0-4); Hematocrit 37.9 % (37.0-47.0); Hemoglobin 12.2 g/dl (12.0-16.0); Imm Gran Abs Auto 0.09 X10*3/uL (0.00-0.03); Imm Gran Pct Auto 0.7 % (0.0-0.4); Lymphocytes Absolute Auto 2.6 X10*3/uL (1.2-4.9); Lymphocytes Percent Auto 19.8 % (20-40); Mean Corpuscular HGB Conc 32.2 g/dl (31.0-35.0); Mean Corpuscular Hemoglobin 28.9 pg (27.0-33.0); Mean Corpuscular Volume 89.8 fL (80.0-98.0); Mean Platelet Volume 9.6 fL (9.4-12.3); Monocytes Absolute Auto 0.8 X10*3/uL (0.1-1.2); Monocytes Percent Auto 6.1 % (2-11); Neutrophils Percent Auto 70.1 % (45-73); Platelet Count 396 X10*3/uL (160-400); Red Blood Count 4.22 X10*6/uL (4.20-5.50); Red Cell Distribution Width 13.2 % (11.0-16.0); White Blood Count 12.9 X10*3/uL (4.8-10.8)
[2024-01-20 07:05] LABS: Anion Gap 15 (12-20); Blood Urea Nitrogen 23 mg/dL (9-16); Calcium 9.8 mg/dL (8.4-10.2); Carbon Dioxide 23 mmol/L (22-29); Chloride 107 mmol/L (96-108); Estimated Glomerular Filt Rate 52; Glucose Random 80 mg/dL (60-115); Potassium 4.6 mmol/L (3.3-5.1); Sodium 140 mmol/L (135-145)
== END 2024-01-20 06:02 | disposition home or self-care (01) ==
LOC: HO.MMNH2L 06:01
PROVIDERS: Visit Provider Family Medicine
DX: Z47.89 Encounter for other orthopedic aftercare (principal); Z96.642 Presence of left artificial hip joint
CPT/HCPCS: 36415; 80048; 85025; 99212

== ENCOUNTER 2024-01-20 13:41 | Outpatient (AMB) | payer MEDICARE, SELFPAY ==
--- NOTE | 2024-01-20 14:11 | A.OFFVIS_ITS ---
Intake Visit Reasons: PO LT hip LOKESH 01/20/24 NE Intake Note: Asya a 78 year old female who presents today for a post operative visit s/p left hip LOKESH on 01/20/24. Patient reports that she is doing well, states some soreness. She has been working with at home therapy. Allergies Penicillins [PENICILLINS] Allergy (Unknown, Verified 01/20/24 14:34) ITCHING HPI HPI PO LT hip LOKESH 01/20/24 NE: Details: 78-year-old female who returns to the office today for post-op left hip LOKESH, 01/20/[address] Floyd. She states she has mild soreness however she is doing well overall. She is working on home therapy with benefits. She is taking oxycodone and Tylenol as instructed. She has no other concerns today. [facility] Medical History Dementia Hypertension Hyperlipemia No pertinent past medical history Social History Household Members: Other Household Members Other:: son and daughter -in -law Housing: House Do you presently have visiting nurse or other home services: No Alcohol intake: never Patient Tobacco Use Status: Never used Tobacco Second Hand Smoke Exposure: No service: No Current occupational status: employed Review of Systems Const All systems reviewed & are unremarkable except as noted in HPI and below Physical Exam Extrem Other: Left hip: Incision clean, dry and intact. No erythema or drainage. No pain with ROM. She is able to perform hip flexion with discomfort, NVI. Assessment & Plan Assessment & Plan (1) Status post total replacement of left hip: Code(s): Z96.642 - Presence of left artificial hip joint Category: Surgical (2) S/P hardware removal: Code(s): Z98.890 - Other specified postprocedural states Category: Surgical Plan Leander removed, steri strips applied. She will begin to transition to Outpatient PT to continue working on Gait training, ROM and quad strength. No driving for another 4 weeks. She will require ppx abx for dental procedures. She will f/u in 4 weeks, sooner if needed. Medications: Changed From enoxaparin 40 mg (0.4 mL) subcut Q24H 42 days 16.8 mL 0RF To enoxaparin 40 mg (0.4 mL) subcut Q24H 11.2 mL 0RF 28 days Patient Instructions: Scribed for Werner Adler PA-C, by Patrick Galan medical research associate, on 01/20/2024 at 2:00 PM EST.? I, Werner Adler PA-C, have personally reviewed and agree with the information entered by the scribe. Coding Level of Care Code Global (21279) Diagnoses Status post total replacement of left hip Z96.642 S/P hardware removal Z98.890
== END 2024-01-20 15:02 | disposition home or self-care (01) ==
PROVIDERS: PCP Family Medicine; Visit Provider Physician Assistant
DX: Z96.642 Presence of left artificial hip joint (principal); Z98.890 Other specified postprocedural states
CPT/HCPCS: 99024

== ENCOUNTER 2024-03-09 13:58 | Outpatient (REF) | payer MEDICARE, SELFPAY ==
--- NOTE | ~2024-03-09 | XR_ITS ---
EXAMINATION: XR PELVIS CLINICAL INFORMATION: Pain COMPARISON: Pelvic x-ray 01/07/2024 TECHNIQUE: AP view of the pelvis. FINDINGS: The pelvic ring is intact. There is mild asymmetric sclerosis of the right sacroiliac joint. No fracture or dislocation of the right hip. Cemented left hip arthroplasty is unremarkable. XR/XR pelvis 1-2V IMPRESSION: No acute pelvic fracture.
== END 2024-03-09 13:59 | disposition home or self-care (01) ==
LOC: HO.HOSX 13:58
PROVIDERS: Visit Provider Orthopaedic Surgery
DX: Z47.1 Aftercare following joint replacement surgery (principal); Z96.642 Presence of left artificial hip joint
CPT/HCPCS: 72170; 99212

== ENCOUNTER 2024-03-09 14:14 | Outpatient (AMB) | payer MEDICARE, SELFPAY ==
--- NOTE | 2024-03-09 14:23 | A.OFFVIS_ITS ---
Intake Visit Reasons: PO LT hip LOKESH 01/20/24 NE Intake Note: Asya is a 78 year old female who presents today for a post operative follow up, she is s/p Left Hip LOKESH. She reports that she is doing well, she had an area of hard swelling over the lateral aspect of the left hip that she is concerned of. Allergies Penicillins [PENICILLINS] Allergy (Unknown, Verified 01/20/24 14:34) ITCHING HPI HPI PO LT hip LOKESH 01/20/24 NE: Details: 6 weeks s/p left hip LOKESH and DIYA. She is doing well. Walking without assistive device but her daughter thinks she isn't walking enough. [facility] Medical History Fracture of femoral neck, left Dementia Hypertension Hyperlipemia No pertinent past medical history Social History Household Members: Other Household Members Other:: son and daughter -in -law Housing: House Do you presently have visiting nurse or other home services: No Alcohol intake: never Patient Tobacco Use Status: Never used Tobacco Second Hand Smoke Exposure: No service: No Current occupational status: employed Physical Exam Extrem Other: inc c/d/i Trendelenberg gait Results Reviewed Results Reviewed: I personally reviewed relevant radiographs. Left DIYA in expected post operative position with no hardware complications or evidence of loosening Assessment & Plan Assessment & Plan (1) Status post total replacement of left hip: Code(s): Z96.642 - Presence of left artificial hip joint Category: Surgical Plan: Doing well. I recommend outpatient PT. December d/c lovenox. f/u 6 weeks Orders: Orders XR pelvis 1-2V Today M25.559 - Pain in unspecified hip PT Evaluation and Treatment Today Z96.642 - Presence of left artificial hip joint Coding Level of Care Code Global (29714) Diagnoses Status post total replacement of left hip Z96.642
== END 2024-03-09 14:42 | disposition home or self-care (01) ==
PROVIDERS: PCP Internal Medicine; Visit Provider Orthopaedic Surgery
DX: Z96.642 Presence of left artificial hip joint (principal)
CPT/HCPCS: 99024